=== PATIENT | male | born 1940 | race Caucasian/White ===

== ENCOUNTER → 2017-03-10 | Outpatient (CLI) | payer OTHER ==
[~2017-03-10] MED LIST: ASPI-482 PO; FINA5TAB4 PO; LACT1CAP8 PO; LISI2.5T PO; MULT1TAB52 PO; OMEG1CAP28 PO; TAMS0.4C2 PO
--- NOTE | 2017-03-11 06:57 | PAIN ---
DATE OF SERVICE: 03/10/2017 INITIAL CONSULTATION FOR PAIN CLINIC CHIEF COMPLAINT: Low back, bilateral lower extremity pain. HISTORY OF PRESENT ILLNESS: This is a 76-year-old male who presents with a history of pain for about 10 years, worse over the past 6-7 months, however, no specific injury or accident that he is aware of, but has been gradually increasing his low back pain across the low back, slightly more worse on the right than the left, but equal essentially bilaterally. The patient reports a dull aching pain, worse with walking, worse with standing, better with sitting or leaning forward, worse in the morning. It is intermittent in intensity, but it is always present, changes during the day ____ aching, throbbing, dull, sometimes with shooting pain at the posterior gluteus, posterior thighs bilaterally. The patient reports again slightly worse on the right, but presents in both legs. The patient reports some mild fatigability with standing or walking for more than about 15-20 minutes or on rough surfaces such as mowing his yard, it is becoming more difficult with radiating pain in his right leg. The patient reports he has had physical therapy, which was within the last 2 months, which helped with some flexibility and mobility of his back, but it has not helped with the pain significantly. The patient is doing exercise currently on his own as well. The patient does have a pain pill. He is not sure where it is, but it helps the pain about 50% that his primary physician has given him. The patient reports again no loss of motor function, reports his daily disability rating from 0-10, 10 being the worst, is a 5 with family and home responsibilities, 7 with recreation, 3 with social activity, 4 with occupation and sexual behavior and 0 with self-care and life support activities. PAST MEDICAL HISTORY: Significant for hearing loss, wearing hearing aids in the right ear, hypertension, history of smoking. PREVIOUS SURGERIES: Include tonsillectomy as a child and some oral dental surgeries in the past. CURRENT MEDICATIONS: Include probiotic ____ daily baby aspirin, multivitamins, lisinopril, tamsulosin, fish oil, finasteride. ALLERGIES: The patient has no known drug allergies. FAMILY HISTORY: Significant for diabetes, heart disease. SOCIAL HISTORY: The patient drinks about 2-3 beers daily. He reports he has been smoking cigarettes, continues to smoke less than a pack a day for the past 50 years. He is , lives with his spouse. 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 REVIEW OF SYSTEMS: Positive for those items mentioned in history of present illness. All systems reviewed and otherwise negative. It is complete, full and well documented on the patient's chart. PHYSICAL EXAMINATION: VITAL SIGNS: Today, the patient's blood pressure is 156/93, pulse 69, respirations 18, temperature 98.0 degrees Fahrenheit, height is 5 feet 9 inches, weight is 202 pounds. GENERAL: The patient is awake, alert, oriented, appropriate, has a very pleasant demeanor. HEENT: Shows normocephalic, atraumatic. Extraocular movements are intact, symmetrical. Oral cavity, his mucous membranes are moist and pink. Dentition is intact. NECK: Shows anterior throat supple without palpable lymphadenopathy noted. Swallow reflex is symmetrical. CHEST: Shows normal on inspection. Breath sounds are clear to auscultation bilaterally. HEART: Shows S1 and S2 clear. ABDOMEN: Soft, nontender, nondistended. No palpable organomegaly is noted. No rebound or guarding demonstrated. BACK: Shows spine grossly in the midline. Slight exaggeration of thoracic kyphosis and mild flattening of lumbar lordotic curvature. No previous bruises, lesions, rashes or scars are noted. Lumbar paraspinous muscles show symmetrical with inspection, with palpation shows moderate tenderness, but only in the low lumbar distribution and only diffusely with very deep palpation. No tenderness over the sacrum and sacroiliac regions, posterior superior iliac spines, over the spinous processes. The patient shows good rotational motion both laterally greater than 10 degrees right and left as well as extension 10 degrees, some mild pain reported in the base of the spine and no pain with forward flexion at 45 degrees, which he performs without difficulty. LOWER EXTREMITIES: Show deep tendon reflexes 2+ in the patellar, 1+ tendo calcaneus tendons, are equal. Motor exam is approximately 4 on a scale of 5 with right dorsiflexion and extension, but 5/5 on the left. Quadriceps and hamstring flexion are 5/5 and equal and symmetrical bilaterally. Peripheral pulses are 1+ posterior tibial and dorsalis pedis pulses. No peripheral edema is noted. No clubbing, no cyanosis. Lower extremities are warm and dry to touch, equal in color and appearance. Straight leg raise is noted to be positive on the right at about 45 degrees, but is relieved with knee flexion with some pain radiating into the posterior gluteus, posterior thigh, to the knee, but again relieved completely with knee flexion. Left side is negative. Gaenslen's and Josue's maneuvers are negative bilaterally as well. The patient is able to stand, stand on his toes without significant difficulty or loss of balance. He is walking with a slight shuffling gait, appears to favor the right lower extremity very minimally, not using any assistive devices such as canes or crutches or walkers to ambulate. IMPRESSION: 1. This is a 76-year-old male with about 10-year history of low back pain, bilateral lower extremity pain, somewhat worse on the right than the left. 2. MRI scan of the lumbar spine showing severe diffuse lumbar spondylosis with multiple levels of foraminal narrowing secondary to disk bulging and facet arthropathy exaggerated at L5-S1, L4-L5, L3-L4 and L2-L3 with L5-S1 showing severely narrowed diffuse bulging in both neural foramina contributing to severe bilateral foraminal narrowing, exaggerated due to moderate bilateral facet arthropathy and posterior vertebral body osteophytes. 3. Hypertension. 4. Cigarette smoking. PLAN: Options were discussed with the patient including conservative medical managements, physical therapies, interventional techniques and he has done physical therapies already and is still doing some exercises. He is interested in interventional techniques. We discussed a lumbar epidural steroid injection using description as well as anatomical models to describe the procedure. The patient would like to proceed with this. We will wait for preauthorization with his insurance provider by his request and have him return for lumbar epidural steroid injection at that time. In the meantime, we will try Medrol Dosepak. The patient was given instructions as well as side effects to be aware of and will return as scheduled. YANELI LOZA MD DR: JAQUELINE/naz JOB#: [id number] / [id number] MARYCHUY Hdez MD
== END | disposition home or self-care (01) ==
LOC: PNCL 09:27
PROVIDERS: ATTEND Anesthesiology
DX: M54.5 Low back pain (principal); M79.605 Pain in left leg; M79.604 Pain in right leg
CPT/HCPCS: G0463

== ENCOUNTER → 2017-03-27 | Outpatient (CLI) | payer OTHER ==
[~2017-03-27] MED LIST changes: +IOHEXOL 180 MG/ML 10 ML VIAL. ONE; +methylPREDNISolone ACETATE 40 MG/ML VIAL. ONE; +methylPREDNISolone ACETATE 80 MG/ML VIAL. ONE
--- NOTE | 2017-03-28 02:34 | PAIN ---
DATE OF SERVICE: 03/27/2017 DIAGNOSES: Lumbar radiculopathy with lumbar degenerative disk disease and lumbar spondylosis. HISTORY OF PRESENT ILLNESS: The patient is a 76-year-old male who returns for followup status post initial evaluation and preauthorization for lumbar epidural steroid injection. The patient reports still significant pain across the low back into the bilateral lower extremities. The patient reports no new motor or sensory deficits; however, no new bowel or bladder incontinence or other complaints, but still significant pain about the same as it was. We did try Medrol Dosepak, which he said helped for the first 4 or 5 days, but the pain has returned. The patient reports it is a 3 on a scale of 10 currently, it can be as high as an 8 on a scale of 10, it is aching, dull off and on pain across the low back and the bilateral lower extremities as previously. The patient reports no new motor or sensory deficits, no new bowel or bladder incontinence or other complaints. PHYSICAL EXAMINATION: VITAL SIGNS: The patient's blood pressure 155/82, pulse ____, respirations are 18, temperature is 98.0 degrees Fahrenheit. Height is 5 feet 10 inches, weight is 199 pounds. GENERAL: The patient is awake, alert, oriented, appropriate, very pleasant demeanor. HEENT: Head shows normocephalic, atraumatic. Extraocular movements are intact, symmetrical. Oral cavity, mucous membranes are moist and pink. Dentition is intact. NECK: Shows anterior throat supple without palpable lymphadenopathy noted. Swallow reflex is symmetrical. CHEST: Shows normal on inspection. Breath sounds clear to auscultation bilaterally. HEART: Shows S1 and S2 clear. ABDOMEN: Soft, nontender, nondistended. BACK: Shows spine grossly in the midline. Normal appearing thoracic kyphosis and lumbar lordotic curvature. Lumbar paraspinous muscle shows some moderate tenderness with palpation, but only diffusely in the lower lumbar distribution without radiation. No tenderness over the sacrum or sacroiliac regions over the spinous processes. The patient has good rotation and motion of the lumbar spine, both laterally as well as extension and flexion. EXTREMITIES: Lower extremities showed deep tendon reflexes 2+ in the patellar, 1+ tendo-calcaneus tendons and are equal. Motor exam is approximately 5/5 on the left and 4/5 on the right at the ankle with dorsiflexion and extension and 5/5 with quadriceps and hamstrings and symmetrical bilaterally. PLAN: Options were discussed with the patient and the patient's old chart was reviewed as his current medication regimen updated. Current review of systems updated today as well. We will proceed with a lumbar epidural steroid injection today with fluoroscopic guidance. Risks were again discussed including, but not limited to bleeding, infection, possibility of epidural hematoma, subsequent neurologic compromise, dural puncture, headaches, spinal cord and/or nerve damage, side effects of steroid medication and poor results regarding pain control. The patient understands and wishes to proceed. The patient will return to clinic in approximately 2 weeks for followup. He was counseled to return appointment, activity level and side effects to be aware of. DIAGNOSIS: Lumbar radiculopathy with lumbar degenerative disk disease, lumbar spondylosis. PROCEDURES: Lumbar epidural steroid injection in translaminar approach at the L5-S1 level using C-arm fluoroscopic guidance under sterile prep and drape and local anesthetic. Medication injected is 120 mg Depo-Medrol plus 10 mL of preservative-free normal saline and 2 mL of Isovue for contrast. CONDITION AT DISCHARGE: Stable. The patient tolerated procedure well, had no complications. YANELI LOZA MD DR: JAQUELINE/naz JOB#: [id number] / [id number]
== END | disposition home or self-care (01) ==
LOC: PNCL 09:56
PROVIDERS: ATTEND Anesthesiology
DX: M51.16 Intervertebral disc disorders with radiculopathy, lumbar region (principal); M47.26 Other spondylosis with radiculopathy, lumbar region
CPT/HCPCS: 62323; J1030; J1040

== ENCOUNTER → 2017-04-21 | Outpatient (CLI) | payer OTHER ==
[~2017-04-21] MED LIST changes: -IOHEXOL 180 MG/ML 10 ML VIAL. ONE; -methylPREDNISolone ACETATE 40 MG/ML VIAL. ONE; -methylPREDNISolone ACETATE 80 MG/ML VIAL. ONE
--- NOTE | 2017-04-22 01:47 | PAIN ---
DATE OF SERVICE: 04/21/2017 DIAGNOSES: Lumbar radiculopathy with lumbar degenerative disk disease and lumbar spondylosis. HISTORY OF PRESENT ILLNESS: The patient is a 76-year-old male who returns for followup status post lumbar epidural steroid injection x 1. The patient reports about 70% improvement initially with his low back and bilateral lower extremity pain. The patient reports his legs are doing much better, almost 100% improvement with about 50% improvement in his low back, but it is still painful in the low back itself with some radiating pain into the legs, but they are much, much better. The patient reports no new motor or sensory deficits, no new bowel or bladder incontinence or other complaints. It has been almost 4 weeks since his last injection. He is doing quite well. Pain is returning now just over the last few days. The patient reports he is still using workout time at the gym 3 times a week. He is sleeping well at night. He only notices pain when he is up walking or standing for more than about 20 minutes. The patient reports pain is a 5 on a scale of 10 at its worst. The patient reports no new motor or sensory deficits, no new bowel or bladder incontinence or other complaints. PHYSICAL EXAMINATION: VITAL SIGNS: Today, the patient's blood pressure is 143/69, pulse 67, respirations are 18, temperature is 97.8 degrees Fahrenheit, height is 5 feet 10 inches, weight is 194 pounds. GENERAL: The patient is awake, alert, oriented, appropriate, very pleasant demeanor. HEENT: Shows normocephalic and atraumatic. The patient is wearing eyeglasses. Extraocular movements are intact and symmetrical. Oral cavity shows mucous membranes are moist and pink. Dentition is intact. NECK: Shows anterior throat supple. CHEST: Shows normal on inspection. Breath sounds are clear to auscultation bilaterally. HEART: Shows S1 and S2 clear. No murmurs auscultated. ABDOMEN: Soft, nontender, nondistended. No palpable organomegaly is noted. No new rebound or guarding demonstrated. BACK: Shows spine grossly in the midline. Slight exaggeration of thoracic kyphosis and some mild flattening of the lumbar lordotic curvature. Lumbar paraspinous musculature shows symmetrical with inspection; on palpation, it shows some moderate tenderness, but only diffusely in the lower lumbar distribution with deep palpation and it is symmetrical without radiation. No tenderness over the sacrum or sacroiliac regions. The patient shows good rotational motion of the lumbar spine, both laterally as well as extension and flexion without significant pain reported. EXTREMITIES: Lower extremities show deep tendon reflexes 2+ in the patellar and tendo calcaneus tendons are 1+. Motor exam is strong with 5/5 dorsiflexion, extension, quadriceps and hamstring flexion with 4/5 strength on the right ankle as the only exception. Options were discussed with the patient. We will preauthorize the patient for a second lumbar epidural steroid injection. He did very well after the first one, the pain is beginning to return now with some radicular qualities in the lower extremities, but only significantly reduced from previously. The patient will return to the clinic in approximately 1 week. We will plan on second lumbar epidural steroid injection at that time. YANELI LOZA MD DR: JAQUELINE/naz JOB#: [id number] / [id number]
== END | disposition home or self-care (01) ==
LOC: PNCL 09:30
PROVIDERS: ATTEND Anesthesiology
DX: M51.16 Intervertebral disc disorders with radiculopathy, lumbar region (principal); M47.896 Other spondylosis, lumbar region
CPT/HCPCS: G0463

== ENCOUNTER → 2017-05-05 | Outpatient (CLI) | payer OTHER ==
[~2017-05-05] MED LIST changes: +IOHEXOL 180 MG/ML 10 ML VIAL. ONE; +methylPREDNISolone ACETATE 40 MG/ML VIAL. ONE; +methylPREDNISolone ACETATE 80 MG/ML VIAL. ONE
--- NOTE | 2017-05-06 02:46 | PAIN ---
DATE OF SERVICE: 05/05/2017 DIAGNOSES: Lumbar radiculopathy with lumbar degenerative disk disease and lumbar spondylosis. HISTORY OF PRESENT ILLNESS: The patient is a 76-year-old male who returns for followup status post lumbar epidural steroid injection x 1 and preauthorization for a second injection and returns today for that, reports still significant pain in the low back, rates as 6 on a scale of 10 at its worse and 4 on a scale of 10 at its least. The patient reports no new motor or sensory deficits, no new bowel or bladder incontinence or other complaints. He did about 50% better after the first injection, but now the pain is again returning in the low back itself with only minimal radiation to the lower extremities. The patient reports no new bowel or bladder incontinence or other complaints. PHYSICAL EXAMINATION: VITAL SIGNS: The patient's blood pressure 130/70, pulse 76, respirations 18, temperature 98.2 degrees Fahrenheit, height is 5 feet 10 inches, weighs ____ pounds. GENERAL: The patient is awake, alert, oriented, appropriate, very pleasant demeanor. HEENT: Head shows normocephalic, atraumatic. Extraocular movements are intact, symmetrical. The patient wears eyeglasses. Oral cavity, mucous membranes are moist and pink. Dentition is intact. NECK: Shows anterior throat supple without palpable lymphadenopathy noted. Swallow reflex is symmetrical. CHEST: Shows normal on inspection. Breath sounds clear to auscultation bilaterally. HEART: Shows S1 and S2 clear. ABDOMEN: Soft, nontender, nondistended. No palpable organomegaly, no rebound or guarding demonstrated. BACK: Shows spine grossly midline. Slight exaggeration of thoracic kyphosis, mild flattening of lumbar lordotic curvature. Lumbar paraspinous musculature shows some moderate tenderness with palpation, but symmetrical on inspection, no radiation of pain. No difficulty with rotational motion both laterally as well as extension and flexion of lumbar spine, which was performed without pain reported. EXTREMITIES: Lower extremities show deep tendon reflexes 2+ in the patellar and 1+ in calcaneus tendons. Motor exam is approximately 4 on a scale of 5 with right ankle and 5/5 on the left. Options were discussed with the patient and the patient's old chart was reviewed as his current medication regimen updated. Current review of systems updated today as well. We will proceed with a second lumbar epidural steroid injection in translaminar approach. Risks were again discussed including, but not limited to bleeding, infection, possibility of epidural hematoma and subsequent neurologic compromise, dural puncture, headaches, spinal cord and/or nerve damage, side effects of steroid medication and poor results regarding pain control. The patient understands and wishes to proceed. The patient will return to clinic in approximately 2 weeks for followup. He was counseled as to return appointment, activity level and side effects to be aware of. DIAGNOSIS: Lumbar radiculopathy with lumbar degenerative disk disease and lumbar spondylosis. PROCEDURE: Lumbar epidural steroid injection in translaminar approach at the L5-S1 level using C-arm fluoroscopic guidance under sterile prep and drape using local anesthetic. Medication injected is 120 mg Depo-Medrol 10 mL of preservative-free normal saline, 2 mL of Isovue for contrast. CONDITION AT DISCHARGE: Stable. The patient tolerated procedure well, had no complications. YANELI LOZA MD DR: JAQUELINE/naz JOB#: [id number] / [id number]
== END | disposition home or self-care (01) ==
LOC: PNCL 09:31
PROVIDERS: ATTEND Anesthesiology
DX: M51.16 Intervertebral disc disorders with radiculopathy, lumbar region (principal); M47.26 Other spondylosis with radiculopathy, lumbar region
CPT/HCPCS: 62323; J1030; J1040

== ENCOUNTER → 2017-05-21 | Outpatient (CLI) | payer OTHER ==
[~2017-05-21] MED LIST changes: -IOHEXOL 180 MG/ML 10 ML VIAL. ONE; -methylPREDNISolone ACETATE 40 MG/ML VIAL. ONE; -methylPREDNISolone ACETATE 80 MG/ML VIAL. ONE
== END | disposition home or self-care (01) ==
LOC: PNCL 10:07
PROVIDERS: ATTEND Anesthesiology
DX: M51.16 Intervertebral disc disorders with radiculopathy, lumbar region (principal); M47.26 Other spondylosis with radiculopathy, lumbar region
CPT/HCPCS: G0463

== ENCOUNTER → 2017-06-22 | Outpatient (CLI) | payer OTHER ==
[~2017-06-22] MED LIST changes: +IOHEXOL 180 MG/ML 10 ML VIAL. ONE; +methylPREDNISolone ACETATE 40 MG/ML VIAL. ONE; +methylPREDNISolone ACETATE 80 MG/ML VIAL. ONE
--- NOTE | 2017-06-22 23:27 | PAIN ---
DATE OF SERVICE: 06/22/2017 DIAGNOSES: Lumbar radiculopathy with lumbar degenerative disk disease and lumbar spondylosis. The patient is a 76-year-old male who returns for followup status post preauthorization and last visit on 05/21/2017. He has been approved now for his third injection. The patient is still with pain in low back into the bilateral lower extremities, reports essentially unchanged, 4 on a scale of 10 at all times and dull aching pain with a pressure sensation in the low back radiating to the gluteus posterior lateral thighs. The patient reports no new motor or sensory deficits, no new bowel or bladder incontinence. He is sleeping fairly well at night and he feels better with sitting or lying down. It does not awaken him from sleep. Increases activity with fairly good success. He has recently returned from a trip from [place] where he did a lot of walking, hiking and driving and tolerated it fairly well. The patient reports overall about 70% improvement. PHYSICAL EXAMINATION: VITAL SIGNS: Today, the patient's blood pressure 138/65, pulse 87, respirations 16, temperature is 98.0 degrees Fahrenheit, height is 5 feet 9 inches, weighs 191 pounds. GENERAL: The patient is awake, alert, oriented, appropriate, very pleasant demeanor. HEENT: Shows normocephalic, atraumatic. The patient is wearing a hearing aid in the right ear as well as eye glasses. Extraocular movements are intact, symmetrical. Oral cavity, mucous membranes moist and pink. NECK: Shows anterior throat supple. CHEST: Shows breath sounds clear to auscultation bilaterally. HEART: Shows S1 and S2 clear. ABDOMEN: Soft, nontender, nondistended. BACK: Shows spine grossly midline. Lumbar paraspinous musculature shows symmetrical on inspection with palpation shows some moderate tenderness bilaterally without radiation. No tenderness over the sacrum or sacroiliac regions. EXTREMITIES: Lower extremities show deep tendon reflexes at 2+ in the patellar and 1+ tendo calcaneus tendons. Motor exam is approximately 4 on a scale of 5 with right dorsiflexion and extension and 5/5 on the left. Options were discussed with the patient and the patient's old chart was reviewed as his current medication regimen updated. Current review of systems updated today as well and we will proceed with the third lumbar epidural steroid injection today with fluoroscopic guidance. Risks were again discussed including, but not limited to bleeding, infection, possibility of epidural hematoma and subsequent neurologic compromise, dural puncture, headaches, spinal cord and/or nerve damage, side effects of steroid medication and poor results regarding pain control. The patient understands and wishes to proceed. The patient will return to clinic in approximately 2 weeks for followup, was counseled on return appointment, activity level and side effects to be aware of. DIAGNOSES: Lumbar radiculopathy with lumbar degenerative disk disease, lumbar spondylosis. PROCEDURES: Lumbar epidural steroid injection in translaminar approach at the L5-S1 level using C-arm fluoroscopic guidance under sterile prep and drape using local anesthetic. MEDICATION INJECTED: A total of 120 mg Depo-Medrol preservative-free normal saline and 2 mL of Isovue contrast. CONDITION AT DISCHARGE: Stable. The patient tolerated procedure well, had no complications. YANELI LOZA MD DR: JAQUELINE/naz JOB#: [id number] / [id number]
== END | disposition home or self-care (01) ==
LOC: PNCL 12:58
PROVIDERS: ATTEND Anesthesiology
DX: M51.16 Intervertebral disc disorders with radiculopathy, lumbar region (principal); M47.26 Other spondylosis with radiculopathy, lumbar region
CPT/HCPCS: 62323; J1030; J1040

== ENCOUNTER → 2017-10-22 | Day surgery (SDC) | payer OTHER ==
[~2017-10-22] MED LIST changes: +ALBUTEROL SULFATE 2.5 MG/3 ML NEBU. NEB ONE; +ASPI325T8 PO; -IOHEXOL 180 MG/ML 10 ML VIAL. ONE; +IV RINGERS,LACTATED 1000ML 1,000 ML IV SCH; +LIDOCAINE 2% PF Vial for OR 5 ML VIAL. ONE; +METO-239 PO; +PROPOFOL 20 ML IV ONE; -methylPREDNISolone ACETATE 40 MG/ML VIAL. ONE; -methylPREDNISolone ACETATE 80 MG/ML VIAL. ONE
--- NOTE | 2017-10-22 15:14 | EKG ---
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
--- NOTE | 2017-10-22 15:52 | OP ---
DATE OF SURGERY: 10/22/2017 ATTENDING PHYSICIAN: Janelle Schneider MD. PROCEDURE: Bronchoscopy, bronchoalveolar lavage, cytology brushing. INDICATIONS: The patient presented with a persistent cough, pneumonia, abnormal x-ray. CT revealed left upper lobe mass. Undergoing diagnostic bronchoscopy. Risks, benefits and alternatives reviewed with the patient. He consented. DESCRIPTION OF PROCEDURE: Timeout was performed prior to sedation. Vital signs and O2 saturations were maintained within normal limits throughout the procedure. The bronchoscope was passed through the right naris. The vocal cords were identified moving bilaterally without any dysfunction. The vocal cords were then anesthetized with a total 5 mL of 4% lidocaine. Bronchoscope was passed through the vocal cords into the proximal trachea, which was normal. The distal trachea was normal. The right and left segments and subsegments were visualized. There was no endobronchial lesion. The scope was wedged into the right upper lobe segment. A cytology brushing was performed along with the lavage. The return on the lavage was serosanguineous. FINDINGS: 1. Normal vocal cords. 2. No endobronchial lesions. 3. No significant mucus plugging. PLAN: We will await the BAL and cytology brushing. JANELLE SCHNEIDER MD DR: BAR/naz JOB#: [id number] / [id number]
--- NOTE | 2017-10-22 16:19 | PDOC2 ---
VIRGINIA FARR MECHANICAL SYSTEMS DESIGNER 10/22/17 1619: CARDIAC CONSULT DATE OF CONSULT Date of Consult DATE: 10/22/17 TIME: 16:08 REASON FOR CONSULT Reason for Consult: Irregular HR REFERRING PHYSICIAN Referring Physician: Marissa SOURCE Source: Chart review, Patient HISTORY OF PRESENT ILLNESS HISTORY OF PRESENT ILLNESS This is a pleasant 76 yo male admitted for planned bronchoscopy due to abnormal lung PET scan. Per staff midway to bronchoscopy pt converted to tachycardia which I reviewed and appeared to be 2:1 atrial flutter in the 140s and was noted hypoxic at that time. He spontaneously went back to SR with stable BP. Pt denies any hx of CAD, VTE, arrhythmias. Pt works out at the gym doing stationary bicycle tiw 30 minutes each time and with weights without difficulty with last event Thursday. Denies any palpitations, CP, SOA, frequent dizziness and no changes with his activity tolerance. PAST MEDICAL HISTORY Cardiovascular: HTN Pulmonary: No pertinent hx CENTRAL NERVOUS SYSTEM: Other (No pertinent history) GI: Constipation Heme/Onc: No pertinent hx Hepatobiliary: No pertinent hx Psych: No pertinent hx Musculoskeletal: Osteoarthritis Rheumatologic: No pertinent hx Infectious disease: No pertinent hx ENT: No pertinent hx Renal/: Benign prostatic enlarg. Endocrine: No pertinent hx Dermatology: No pertinent hx PAST SURGICAL HISTORY Past Surgical History: Tonsillectomy, Other (vasectomy) FAMILY HISTORY Family History: Coronary Artery Disease (father) SOCIAL HISTORY Smoke: Quit (09/16/2017 50 pk yr) ALCOHOL: occassional Drugs: None Lives: with Family CURRENT MEDICATIONS CURRENT MEDICATIONS Current Medications Medications (Trade) Dose Ordered Sig/Lucia Route PRN Reason Start Time Stop Time Status Last Admin Dose Admin Ringer's Solution 1,000 ml @ 75 mls/hr [id number] IV 10/22/17 14:00 10/22/17 13:57 Albuterol Sulfate (Ventolin Neb Soln) 2.5 mg 1X ONCE NEB 10/22/17 14:15 10/22/17 14:16 DC 10/22/17 14:10 ALLERGIES ALLERGIES: Coded Allergies: No Known Allergies (Verified Allergy, Unknown, 10/22/17) ROS Review of System 14 point ROS evaluated with pertinent positives noted per HPI PHYSICAL EXAM General: Alert, Oriented X3, Cooperative, No acute distress HEENT: Atraumatic, Mucous membr. moist/pink Lungs: Other (diminished) Heart: Regular rate (SR), Normal S1, Normal S2, Other (distant heart sounds) Abdomen: Soft, No tenderness Extremities: No cyanosis, No edema Skin: No breakdown, No significant lesion Neuro: Normal speech, Sensation intact Psych/Mental Status: Mental status NL, Mood NL MUSCULOSKELETAL: Osteoarthritic changes both hands VITALS VITALS Vital Signs Date Time Temp Pulse Resp B/P (MAP) Pulse Ox O2 Delivery O2 Flow Rate FiO2 10/22/17 16:00 98.2 77 18 176/89 94 Nasal Cannula 3 98.2 ASSESSMENT/PLAN ASSESSMENT/PLAN 1. S/P Bronchoscopy for noted lung tumor per PET scan 2. SVT; appears to be 2:1 atrial flutter induced by hypoxia during bronch with spontaneous conversion to SR 3. HTN: controlled 4. Asymmetric increased activity in the left lobe of the thyroid gland: per PET scan Recommendations 1. Continue with home lisinopril 2. CMP, Mg, TSH, T3 3. TTE tomorrow 4. Will plan for outpt event monitor. Continue 81 mg ECASA for primary prevention Problems: DOM NFEF MD 10/23/17 1804: CARDIAC CONSULT ALLERGIES ALLERGIES: Coded Allergies: No Known Allergies (Verified Allergy, Unknown, 10/22/17) ASSESSMENT/PLAN ASSESSMENT/PLAN Pt. seen and examined. Late entry for 10/22/2017. 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 Had some arrhythmias overnight, currently stable. Start toprol XL 25mg daily. Stop Lisinopril. EVent monitor and f/u in the office in 4 weeks. Thanks for consultation. Problems: VIRGINIA FARR APRN Oct 22, 2017 16:19 DOM NEFF MD Oct 23, 2017 18:04
[2017-10-22 16:30] VITALS: BP 171/85
--- NOTE | 2017-10-27 16:33 | PATHOLOGY ---
CYTOPATHOLOGY REPORT CLINICAL HISTORY: Lung nodule. SPECIMEN(S) RECEIVED: A.Bronchoalveolar lavage, KELECHI B.Bronchial brushing, KELECHI FINAL DIAGNOSIS: A. Left upper lobe bronchoalveolar lavage, ThinPrep: - Atypical cells identified. - Few atypical keratinized squamous epithelial cells, bronchial epithelial cells, benign squamous epithelial cells, pulmonary macrophages, and scattered inflammatory cells identified. B. Left upper lobe bronchial brushing and brush tip rinse, smear and ThinPrep: - No malignant cells identified. - Focally reactive bronchial epithelial cells, few squamous epithelial cells, and few pulmonary macrophages identified. (JPM:rlm; 10/27/2017) PATHOLOGIST: Ruben Petersen M.D. REPORT ELECTRONICALLY SIGNED BY: Ruben Petersen M.D. DATE/TIME: 10/27/2017 16:32 GROSS PATHOLOGY: A. Bronchoalveolar lavage, KELECHI: The specimen is submitted unfixed, labeled "Annita Long". Received by the Cytology Department is 7.5 mL of cloudy pink fluid. One ThinPrep slide was prepared. B. Bronchial brushing, KELECHI: The specimen is labeled "Annita Long" and consists of one fixed slide. One brush tip in fixative is also submitted and one ThinPrep slide was prepared from this material. (clt 10.23.2017) PALM AND BACK FORGER(S): JOE Ram([facility] INITIAL CPT CODE(S): A; 34785 B; 53933 Professional services performed by [facility] [place] [address] Technical services performed by [facility] at [address] [place] [address], [place] [address]. PATIENT: ANNITA LONG /AGE: 1 1940 (Age: 76) SEX: M PATIENT #: [id number] ALT CASE #: SPECIMEN COLLECTION DATE: 10/23/2017 SPECIMEN RECEIVED DATE: 10/23/[address] [facility], [address] [place] [address] PHONE: [phone] DIRECTOR: Jame Chavis M.D. * * * END OF REPORT * * *
== END | disposition home or self-care (01) ==
LOC: SURG 12:55
PROVIDERS: ATTEND Internal Medicine Pulmonary Disease
DX: J18.9 Pneumonia, unspecified organism (principal); R94.2 Abnormal results of pulmonary function studies; R05 Cough; N40.0 Benign prostatic hyperplasia without lower urinary tract symptoms; I10 Essential (primary) hypertension; I48.91 Unspecified atrial fibrillation; F17.210 Nicotine dependence, cigarettes, uncomplicated; I47.1 Supraventricular tachycardia
CPT/HCPCS: 31622; 87070; 87116; 87205; 88112; 93005; 94640; J2704; J7613; J2001

== ENCOUNTER → 2017-11-17 | Outpatient (CLI) | payer OTHER ==
[2017-11-17 11:53] LABS: ADD MAN DIFF? NO
[2017-11-17 11:55] LABS: BASO # 0.1 x10^3/uL (0.0-0.2); BASO % 1 % (0-3); EOS # 0.3 x10^3/uL (0.0-0.7); EOS % 4 % (0-3); HEMATOCRIT 44.1 % (39.0-53.0); HEMOGLOBIN 14.4 g/dL (13.0-17.5); LYMPH % 27 % (24-48); MEAN CORPUSCULAR HEMOGLOBIN 33 pg (25-35); MEAN CORPUSCULAR HGB CONC 33 g/dL (31-37); MEAN CORPUSCULAR VOLUME 100 fL (79-100); MONO # 0.8 x10^3/uL (0.0-1.1); MONO % 10 % (0-9); NEUT # 4.2 x10^3uL (1.8-7.7); NEUT % 57 % (31-73); PLATELET COUNT 221 x10^3/uL (140-400); RED BLOOD COUNT 4.41 x10^6/uL (4.30-5.70); RED CELL DISTRIBUTION WIDTH 14.1 % (11.5-14.5); WHITE BLOOD COUNT 7.4 x10^3/uL (4.0-11.0)
[2017-11-17 12:10] LABS: INR 1.1 (0.8-1.1); PARTIAL THROMBOPLASTIN TIME 26 SEC (24-38); PROTHROMBIN TIME PATIENT 13.8 SEC (11.7-14.0)
[2017-11-17 12:12] LABS: ALBUMIN 3.7 g/dL (3.4-5.0); ALBUMIN/GLOBULIN RATIO 1.2 (1.0-1.7); ALK PHOS 66 U/L (46-116); ALT (SGPT) 31 U/L (16-63); ANION GAP 7 (6-14); AST (SGOT) 23 U/L (15-37); BLOOD UREA NITROGEN 13 mg/dL (8-26); BUN/CREATININE RATIO 22 (6-20); CALCIUM 9.4 mg/dL (8.5-10.1); CARBON DIOXIDE 31 mmol/L (21-32); CHLORIDE 105 mmol/L (98-107); CREATININE 0.6 mg/dL (0.7-1.3); GFR 130.6; GLUCOSE 90 mg/dL (70-99); POTASSIUM 4.3 mmol/L (3.5-5.1); SODIUM 143 mmol/L (136-145); TOTAL BILIRUBIN 0.5 mg/dL (0.2-1.0); TOTAL PROTEIN 6.9 g/dL (6.4-8.2)
== END | disposition home or self-care (01) ==
LOC: SURGPAT 11:25
DX: Z01.818 Encounter for other preprocedural examination (principal)
CPT/HCPCS: 36415; 80053; 85025; 85610; 85730; 93005

== ENCOUNTER 2017-11-23 07:01 | Inpatient (IN) | payer OTHER ==
[~2017-11-23 07:01] MED LIST changes: -ALBUTEROL SULFATE 2.5 MG/3 ML NEBU. NEB ONE; -ASPI-482 PO; -ASPI325T8 PO; -FINA5TAB4 PO; +HYDROmorphone 2 MG/ML VIAL IV; +IV RINGERS,LACTATED 1000ML 1,000 ML IV; -IV RINGERS,LACTATED 1000ML 1,000 ML IV SCH; -LACT1CAP8 PO; +LIDOCAINE 1% PF 2 ML VIAL. ID; -LIDOCAINE 2% PF Vial for OR 5 ML VIAL. ONE; -LISI2.5T PO; -METO-239 PO; +MORPHINE SULFATE 2 MG/ML DISP.SYRIN. IV; -MULT1TAB52 PO; -OMEG1CAP28 PO; +ONDANSETRON PF 4 MG/2 ML VIAL. IV; -PROPOFOL 20 ML IV ONE; -TAMS0.4C2 PO; +fentaNYL PF VIAL 100 MCG/2 ML VIAL IV
[2017-11-25] MEDS ORDERED: MORPHINE SULFATE 2 MG/ML DISP.SYRIN. IV (07:00)
[2017-11-25] MEDS ORDERED: ONDANSETRON PF 4 MG/2 ML VIAL. IV ×3 (07:00→15:15)
[2017-11-25] MEDS ORDERED: PROCHLORPERAZINE 10 MG/2 ML VIAL. IV ×2 (07:00→15:15)
[2017-11-25] MEDS ORDERED: LIDOCAINE 1% PF 2 ML VIAL. ID (07:00)
[2017-11-25] MEDS: IV RINGERS,LACTATED 1000ML 1,000 ML IV (07:00)
[2017-11-25] MEDS ORDERED: HYDROmorphone 2 MG/ML VIAL IV ×2 (07:00→15:15)
[2017-11-25] MEDS ORDERED: fentaNYL PF VIAL 100 MCG/2 ML VIAL IV ×2 (07:00)
[2017-11-25] MEDS: ceFAZolin SODIUM IV Push 1 GM VIAL. IVP (08:45)
[2017-11-25] MEDS ORDERED: FAMOTIDINE 20 MG/2 ML VIAL (09:12)
[2017-11-25] MEDS ORDERED: MIDAZOLAM HCL/PF 2 MG/2 ML VIAL. (09:13)
[2017-11-25] MEDS ORDERED: fentaNYL PF VIAL 250 MCG/5 ML VIAL (09:13)
[2017-11-25] MEDS ORDERED: ONDANSETRON PF 4 MG/2 ML VIAL. (09:17)
[2017-11-25] MEDS ORDERED: LIDOCAINE 2% PF Vial for OR 5 ML VIAL. (09:17)
[2017-11-25] MEDS ORDERED: ROCURONIUM 100 MG/10 ML VIAL. (09:17)
[2017-11-25] MEDS ORDERED: PROPOFOL 20 ML IV (09:17)
[2017-11-25] MEDS ORDERED: DEXAMETHASONE SOD PHOS 20 MG/5 ML VIAL. (09:18)
[2017-11-25] MEDS ORDERED: SURGICEL HEMOSTAT 4X8 EACH. (09:44)
[2017-11-25] MEDS ORDERED: NALOXONE 0.4 MG/ML VIAL. IV (11:15)
[2017-11-25] MEDS ORDERED: NALBUPHINE 10 MG/ML AMPUL. IV (11:15)
[2017-11-25] MEDS ORDERED: diphenhydrAMINE 50 MG/ML VIAL IV (11:15)
[2017-11-25] MEDS ORDERED: NEOSTIGMINE 10 MG/10 ML VIAL. (12:38)
[2017-11-25] MEDS ORDERED: ROCURONIUM 50 MG/5 ML VIAL. (12:56)
[2017-11-25] MEDS ORDERED: ePHEDrine PF IN SALINE 50 MG/5 ML DISP.SYRIN IV (13:33)
[2017-11-25] MEDS ORDERED: GLYCOPYRROLATE 1 MG/5 ML VIAL. (14:18)
[2017-11-25] MEDS ORDERED: CHONDROIT-SOD-HYALURONATE KIT. (14:26)
[2017-11-25] MEDS ORDERED: 0.9 % SODIUM CHLORIDE 10 ML DISP.SYRIN. IV (15:15)
[2017-11-25] MEDS ORDERED: BISACODYL 10 MG SUPP.RECT. PR (15:15)
[2017-11-25] MEDS: IV NORMAL SALINE 1000ML BAG 1,000 ML IV (15:15)
[2017-11-25] MEDS ORDERED: PROCHLORPERAZINE 25 MG SUPP.RECT. PR (15:15)
[2017-11-25] MEDS ORDERED: SEVOFLURANE > 120 MINUTES. IH (15:30)
[2017-11-25 15:57] LABS: HEMATOCRIT 40.4 % (39.0-53.0); HEMOGLOBIN 13.3 g/dL (13.0-17.5); MEAN CORPUSCULAR HEMOGLOBIN 32 pg (25-35); MEAN CORPUSCULAR HGB CONC 33 g/dL (31-37); MEAN CORPUSCULAR VOLUME 99 fL (79-100); PLATELET COUNT 213 x10^3/uL (140-400); RED CELL DISTRIBUTION WIDTH 13.7 % (11.5-14.5); WHITE BLOOD COUNT 12.6 x10^3/uL (4.0-11.0)
[2017-11-25 16:14] LABS: ALBUMIN 3.4 g/dL (3.4-5.0); ALBUMIN/GLOBULIN RATIO 1.3 (1.0-1.7); ALK PHOS 67 U/L (46-116); ALT (SGPT) 26 U/L (16-63); ANION GAP 11 (6-14); AST (SGOT) 29 U/L (15-37); BLOOD UREA NITROGEN 16 mg/dL (8-26); BUN/CREATININE RATIO 27 (6-20); CALCIUM 8.4 mg/dL (8.5-10.1); CARBON DIOXIDE 25 mmol/L (21-32); CHLORIDE 107 mmol/L (98-107); CREATININE 0.6 mg/dL (0.7-1.3); GFR 130.3; GLUCOSE 165 mg/dL (70-99); POTASSIUM 4.1 mmol/L (3.5-5.1); SODIUM 143 mmol/L (136-145); TOTAL BILIRUBIN 0.6 mg/dL (0.2-1.0)
[2017-11-25] MEDS ORDERED: hydrALAZINE 20 MG/ML VIAL. IVP (17:45)
[2017-11-25] MEDS: hydrALAZINE 20 MG/ML VIAL. IVP (17:53)
[2017-11-25] MEDS: ROPIVACAINE 0.5% EP (19:54)
[2017-11-25] MEDS: HYDROMORPHONE EP (19:54)
[2017-11-25] MEDS: NORMAL SALINE EP (19:54)
[2017-11-25] MEDS: [UNRECOGNIZED DRUG - OTHER] EP (19:54)
[2017-11-25] MEDS: IPRATRPIUM/ALBUTEROL 0.5/2.5MG 3 ML NEBU. NEB (20:11)
[2017-11-25] MEDS: FAMOTIDINE 20 MG/2 ML VIAL IVP (20:13)
[2017-11-25] MEDS: HEPARIN PF for SUB-Q USE 5,000 UNIT/0.5 ML VIAL. SQ (20:14)
[2017-11-25] MEDS: SENNOSIDES/DOCUSATE 8.6/50MG TABLET. PO (20:14)
[2017-11-25] MEDS: METOPROLOL TART IMMED RELEASE 25 MG TABLET. PO (20:14)
[2017-11-26] MEDS: HYDROMORPHONE EP ×4 (00:53→23:01)
[2017-11-26] MEDS: ROPIVACAINE 0.5% EP ×4 (00:53→23:01)
[2017-11-26] MEDS: [UNRECOGNIZED DRUG - OTHER] EP ×4 (00:53→23:01)
[2017-11-26] MEDS: NORMAL SALINE EP ×4 (00:53→23:01)
[2017-11-26] MEDS: KETOROLAC 15 MG/ML VIAL. IV ×2 (04:41→14:38)
[2017-11-26 05:50] LABS: HEMATOCRIT 35.4 % (39.0-53.0); MEAN CORPUSCULAR HEMOGLOBIN 34 pg (25-35); MEAN CORPUSCULAR HGB CONC 34 g/dL (31-37); MEAN CORPUSCULAR VOLUME 99 fL (79-100); PLATELET COUNT 179 x10^3/uL (140-400); RED BLOOD COUNT 3.59 x10^6/uL (4.30-5.70); RED CELL DISTRIBUTION WIDTH 14.2 % (11.5-14.5)
[2017-11-26 06:59] LABS: ALBUMIN 2.7 g/dL (3.4-5.0); ALK PHOS 55 U/L (46-116); ALT (SGPT) 30 U/L (16-63); ANION GAP 6 (6-14); AST (SGOT) 36 U/L (15-37); BLOOD UREA NITROGEN 14 mg/dL (8-26); BUN/CREATININE RATIO 20 (6-20); CALCIUM 7.7 mg/dL (8.5-10.1); CARBON DIOXIDE 26 mmol/L (21-32); CHLORIDE 104 mmol/L (98-107); CREATININE 0.7 mg/dL (0.7-1.3); GFR 109.1; GLUCOSE 169 mg/dL (70-99); POTASSIUM 4.2 mmol/L (3.5-5.1); SODIUM 136 mmol/L (136-145); TOTAL BILIRUBIN 0.4 mg/dL (0.2-1.0)
[2017-11-26 07:22] LABS: TOTAL PROTEIN 5.5 g/dL (6.4-8.2)
[2017-11-26] MEDS: IPRATRPIUM/ALBUTEROL 0.5/2.5MG 3 ML NEBU. NEB ×4 (08:25→20:27)
[2017-11-26] MEDS: ELECTROLYTE (NON-ICU) PROTOCOL MC (09:00)
[2017-11-26] MEDS: FINASTERIDE 5 MG TABLET. PO (09:32)
[2017-11-26] MEDS: METOPROLOL TART IMMED RELEASE 25 MG TABLET. PO ×2 (09:32→21:00)
[2017-11-26] MEDS: SENNOSIDES/DOCUSATE 8.6/50MG TABLET. PO ×2 (09:32→20:57)
[2017-11-26] MEDS: FAMOTIDINE 20 MG/2 ML VIAL IVP ×2 (09:32→20:57)
[2017-11-26] MEDS: TAMSULOSIN 0.4 MG CAP.ER.24H. PO (09:32)
[2017-11-26] MEDS: HEPARIN PF for SUB-Q USE 5,000 UNIT/0.5 ML VIAL. SQ ×2 (09:33→21:07)
[2017-11-27 01:15] LABS: MRSA BY PCR Negative (Negative)
[2017-11-27] MEDS: AMIODARONE 900 MG in IV DEXTROSE 5% 500 ML IV (02:55)
[2017-11-27] MEDS: AMIODARONE 150 MG in IV DEXTROSE 5% 100 ML IV (03:56)
[2017-11-27] MEDS: ROPIVACAINE 0.5% EP ×4 (04:11→20:15)
[2017-11-27] MEDS: [UNRECOGNIZED DRUG - OTHER] EP ×4 (04:11→20:15)
[2017-11-27] MEDS: HYDROMORPHONE EP ×4 (04:11→20:15)
[2017-11-27] MEDS: NORMAL SALINE EP ×4 (04:11→20:15)
[2017-11-27 06:16] LABS: HEMOGLOBIN 12.1 g/dL (13.0-17.5); MEAN CORPUSCULAR HEMOGLOBIN 33 pg (25-35); MEAN CORPUSCULAR HGB CONC 34 g/dL (31-37); MEAN CORPUSCULAR VOLUME 99 fL (79-100); PLATELET COUNT 177 x10^3/uL (140-400); RED BLOOD COUNT 3.62 x10^6/uL (4.30-5.70); RED CELL DISTRIBUTION WIDTH 14.2 % (11.5-14.5); WHITE BLOOD COUNT 9.5 x10^3/uL (4.0-11.0)
[2017-11-27 06:44] LABS: ALBUMIN 2.9 g/dL (3.4-5.0); ALK PHOS 57 U/L (46-116); ALT (SGPT) 25 U/L (16-63); ANION GAP 6 (6-14); AST (SGOT) 35 U/L (15-37); BLOOD UREA NITROGEN 12 mg/dL (8-26); BUN/CREATININE RATIO 17 (6-20); CALCIUM 8.4 mg/dL (8.5-10.1); CARBON DIOXIDE 28 mmol/L (21-32); CHLORIDE 104 mmol/L (98-107); CREATININE 0.7 mg/dL (0.7-1.3); GFR 109.1; GLUCOSE 125 mg/dL (70-99); POTASSIUM 4.4 mmol/L (3.5-5.1); SODIUM 138 mmol/L (136-145); TOTAL BILIRUBIN 0.7 mg/dL (0.2-1.0); TOTAL PROTEIN 5.9 g/dL (6.4-8.2)
[2017-11-27] MEDS: IPRATRPIUM/ALBUTEROL 0.5/2.5MG 3 ML NEBU. NEB ×3 (07:45→15:46)
[2017-11-27] MEDS: ELECTROLYTE (NON-ICU) PROTOCOL MC (09:00)
[2017-11-27] MEDS: METOPROLOL TART IMMED RELEASE 25 MG TABLET. PO ×2 (09:00→20:20)
[2017-11-27] MEDS: TAMSULOSIN 0.4 MG CAP.ER.24H. PO (09:19)
[2017-11-27] MEDS: METOPROLOL TARTRATE 5 MG/5 ML VIAL. IVP (09:19)
[2017-11-27] MEDS: SENNOSIDES/DOCUSATE 8.6/50MG TABLET. PO ×2 (09:19→20:20)
[2017-11-27] MEDS: HEPARIN PF for SUB-Q USE 5,000 UNIT/0.5 ML VIAL. SQ ×2 (09:25→20:19)
[2017-11-27] MEDS: FAMOTIDINE 20 MG/2 ML VIAL IVP ×2 (09:53→20:21)
[2017-11-27] MEDS: FINASTERIDE 5 MG TABLET. PO (09:58)
[2017-11-27] MEDS: dilTIAZem IV PUSH 25 MG/5 ML VIAL IVP (14:00)
[2017-11-27] MEDS: DIGOXIN IV 500 MCG/2 ML AMPUL. IV (16:32)
[2017-11-27] MEDS: VERAPAMIL 5 MG/2 ML VIAL. IV (16:44)
[2017-11-27] MEDS ORDERED: ALBUTEROL SULFATE 2.5 MG/3 ML NEBU. NEB (17:45)
[2017-11-27] MEDS: VERAPAMIL SR 120 MG TABLET.ER. PO (20:20)
[2017-11-28] MEDS: NORMAL SALINE EP ×2 (01:52→10:02)
[2017-11-28] MEDS: ROPIVACAINE 0.5% EP ×2 (01:52→10:02)
[2017-11-28] MEDS: HYDROMORPHONE EP ×2 (01:52→10:02)
[2017-11-28] MEDS: [UNRECOGNIZED DRUG - OTHER] EP ×2 (01:52→10:02)
[2017-11-28] MEDS: AMIODARONE 900 MG in IV DEXTROSE 5% 500 ML IV (01:56)
[2017-11-28 05:37] LABS: HEMATOCRIT 30.4 % (39.0-53.0); HEMOGLOBIN 10.2 g/dL (13.0-17.5); MEAN CORPUSCULAR HEMOGLOBIN 33 pg (25-35); MEAN CORPUSCULAR HGB CONC 33 g/dL (31-37); MEAN CORPUSCULAR VOLUME 99 fL (79-100); PLATELET COUNT 127 x10^3/uL (140-400); RED BLOOD COUNT 3.08 x10^6/uL (4.30-5.70); RED CELL DISTRIBUTION WIDTH 13.9 % (11.5-14.5); WHITE BLOOD COUNT 7.9 x10^3/uL (4.0-11.0)
[2017-11-28 07:24] LABS: ALBUMIN 2.4 g/dL (3.4-5.0); ALBUMIN/GLOBULIN RATIO 0.8 (1.0-1.7); ALK PHOS 52 U/L (46-116); ALT (SGPT) 23 U/L (16-63); ANION GAP 5 (6-14); AST (SGOT) 32 U/L (15-37); BLOOD UREA NITROGEN 13 mg/dL (8-26); BUN/CREATININE RATIO 22 (6-20); CALCIUM 8.1 mg/dL (8.5-10.1); CARBON DIOXIDE 31 mmol/L (21-32); CHLORIDE 101 mmol/L (98-107); CREATININE 0.6 mg/dL (0.7-1.3); GFR 130.3; GLUCOSE 115 mg/dL (70-99); POTASSIUM 4.3 mmol/L (3.5-5.1); SODIUM 137 mmol/L (136-145); TOTAL BILIRUBIN 0.5 mg/dL (0.2-1.0); TOTAL PROTEIN 5.5 g/dL (6.4-8.2)
[2017-11-28] MEDS: METOPROLOL TART IMMED RELEASE 25 MG TABLET. PO ×2 (08:26→20:33)
[2017-11-28] MEDS: VERAPAMIL SR 120 MG TABLET.ER. PO ×2 (08:27→20:32)
[2017-11-28] MEDS: BUDESONIDE 0.5 MG/2 ML NEBU. NEB ×2 (08:41→21:05)
[2017-11-28] MEDS: IPRATROPIUM BROMIDE 0.5 MG/2.5 ML NEBU. NEB ×4 (08:41→21:05)
[2017-11-28] MEDS: ELECTROLYTE (NON-ICU) PROTOCOL MC (09:00)
[2017-11-28] MEDS: FAMOTIDINE 20 MG/2 ML VIAL IVP ×2 (09:02→20:35)
[2017-11-28] MEDS: TAMSULOSIN 0.4 MG CAP.ER.24H. PO (09:03)
[2017-11-28] MEDS: SENNOSIDES/DOCUSATE 8.6/50MG TABLET. PO ×2 (09:03→20:32)
[2017-11-28] MEDS: FINASTERIDE 5 MG TABLET. PO (09:03)
[2017-11-28] MEDS: HEPARIN PF for SUB-Q USE 5,000 UNIT/0.5 ML VIAL. SQ ×2 (09:20→20:41)
[2017-11-29] MEDS: IPRATROPIUM BROMIDE 0.5 MG/2.5 ML NEBU. NEB ×4 (08:02→18:19)
[2017-11-29] MEDS: BUDESONIDE 0.5 MG/2 ML NEBU. NEB ×2 (08:02→18:19)
[2017-11-29] MEDS: HEPARIN PF for SUB-Q USE 5,000 UNIT/0.5 ML VIAL. SQ ×2 (08:57→21:17)
[2017-11-29] MEDS: FAMOTIDINE 20 MG/2 ML VIAL IVP ×2 (08:57→21:16)
[2017-11-29] MEDS: TAMSULOSIN 0.4 MG CAP.ER.24H. PO (08:58)
[2017-11-29] MEDS: METOPROLOL TART IMMED RELEASE 25 MG TABLET. PO ×2 (08:58→21:17)
[2017-11-29] MEDS: VERAPAMIL SR 120 MG TABLET.ER. PO ×2 (08:58→21:16)
[2017-11-29] MEDS: SENNOSIDES/DOCUSATE 8.6/50MG TABLET. PO ×2 (08:58→21:17)
[2017-11-29] MEDS: FINASTERIDE 5 MG TABLET. PO (08:59)
[2017-11-29] MEDS: ELECTROLYTE (NON-ICU) PROTOCOL MC (09:00)
[2017-11-29] MEDS: MAGNESIUM HYDROXIDE 2,400 MG/30 ML ORAL.SUSP. PO (18:20)
[2017-11-30 05:05] LABS: HEMATOCRIT 33.2 % (39.0-53.0); HEMOGLOBIN 11.2 g/dL (13.0-17.5); MEAN CORPUSCULAR HEMOGLOBIN 34 pg (25-35); MEAN CORPUSCULAR HGB CONC 34 g/dL (31-37); MEAN CORPUSCULAR VOLUME 100 fL (79-100); PLATELET COUNT 212 x10^3/uL (140-400); RED BLOOD COUNT 3.33 x10^6/uL (4.30-5.70); RED CELL DISTRIBUTION WIDTH 13.5 % (11.5-14.5); WHITE BLOOD COUNT 7.5 x10^3/uL (4.0-11.0)
[2017-11-30 05:46] LABS: ALBUMIN 2.2 g/dL (3.4-5.0); ALBUMIN/GLOBULIN RATIO 0.6 (1.0-1.7); ALK PHOS 57 U/L (46-116); ALT (SGPT) 26 U/L (16-63); ANION GAP 4 (6-14); AST (SGOT) 27 U/L (15-37); BLOOD UREA NITROGEN 10 mg/dL (8-26); BUN/CREATININE RATIO 20 (6-20); CALCIUM 8.3 mg/dL (8.5-10.1); CARBON DIOXIDE 33 mmol/L (21-32); CHLORIDE 97 mmol/L (98-107); CREATININE 0.5 mg/dL (0.7-1.3); GFR 160.8; GLUCOSE 115 mg/dL (70-99); SODIUM 134 mmol/L (136-145); TOTAL BILIRUBIN 0.4 mg/dL (0.2-1.0); TOTAL PROTEIN 5.7 g/dL (6.4-8.2)
[2017-11-30] MEDS: BUDESONIDE 0.5 MG/2 ML NEBU. NEB ×2 (05:54→19:57)
[2017-11-30] MEDS: IPRATROPIUM BROMIDE 0.5 MG/2.5 ML NEBU. NEB ×4 (05:54→19:57)
[2017-11-30] MEDS: FAMOTIDINE 20 MG/2 ML VIAL IVP (08:44)
[2017-11-30] MEDS: FINASTERIDE 5 MG TABLET. PO (08:45)
[2017-11-30] MEDS: TAMSULOSIN 0.4 MG CAP.ER.24H. PO (08:45)
[2017-11-30] MEDS: VERAPAMIL SR 120 MG TABLET.ER. PO (08:45)
[2017-11-30] MEDS: SENNOSIDES/DOCUSATE 8.6/50MG TABLET. PO ×2 (08:45→21:04)
[2017-11-30] MEDS: METOPROLOL TART IMMED RELEASE 25 MG TABLET. PO ×2 (08:45→21:05)
[2017-11-30] MEDS: oxyCODONE/APAP 5/325 1 TAB TABLET PO (08:46)
[2017-11-30] MEDS: HEPARIN PF for SUB-Q USE 5,000 UNIT/0.5 ML VIAL. SQ ×2 (08:51→21:09)
[2017-11-30] MEDS: ELECTROLYTE (NON-ICU) PROTOCOL MC (09:00)
[2017-11-30] MEDS: DABIGATRAN ETEXILATE 150 MG CAPSULE. PO (21:04)
[2017-11-30] MEDS: VERAPAMIL SR 180 MG TABLET.ER. PO (21:04)
[2017-11-30] MEDS: FAMOTIDINE 20 MG TABLET. PO (21:05)
[2017-12-01] MEDS: BUDESONIDE 0.5 MG/2 ML NEBU. NEB (08:01)
[2017-12-01] MEDS: IPRATROPIUM BROMIDE 0.5 MG/2.5 ML NEBU. NEB ×2 (08:01→11:47)
[2017-12-01] MEDS: FAMOTIDINE 20 MG TABLET. PO (08:58)
[2017-12-01] MEDS: TAMSULOSIN 0.4 MG CAP.ER.24H. PO (08:58)
[2017-12-01] MEDS: SENNOSIDES/DOCUSATE 8.6/50MG TABLET. PO (08:59)
[2017-12-01] MEDS: VERAPAMIL SR 180 MG TABLET.ER. PO (08:59)
[2017-12-01] MEDS: oxyCODONE/APAP 5/325 1 TAB TABLET PO (08:59)
[2017-12-01] MEDS: FINASTERIDE 5 MG TABLET. PO (08:59)
[2017-12-01] MEDS: DABIGATRAN ETEXILATE 150 MG CAPSULE. PO (08:59)
[2017-12-01] MEDS: METOPROLOL TART IMMED RELEASE 25 MG TABLET. PO (08:59)
[2017-12-01] MEDS: ELECTROLYTE (NON-ICU) PROTOCOL MC (09:00)
[2017-12-01] MEDS: HEPARIN PF for SUB-Q USE 5,000 UNIT/0.5 ML VIAL. SQ (09:03)
[2017-12-01] MEDS ORDERED: ANTI-COAG MONITOR BY PHARMACY. MC (10:00)
== END 2017-12-01 15:05 | disposition home or self-care (01) | DRG 163 ==
LOC: OPSVCIP 11-25 08:09 → 2 SOUTH 11-27 02:00 → 1 WEST ICU 11-25 15:22 → OPSVCIP 07:01
PROC: 0BT Respiratory System, Resection (ICD-10-PCS; principal; 2017-11-25 10:00)
PROC: 0BTG0ZZ Resection of Left Upper Lung Lobe, Open Approach (ICD-10-PCS; 2017-11-25 10:00)
PROC: 0BJ08ZZ Inspection of Tracheobronchial Tree, Via Natural or Artificial Opening Endoscopic (ICD-10-PCS; 2017-11-25 10:00)
PROC: 07B70ZX Excision of Thorax Lymphatic, Open Approach, Diagnostic (ICD-10-PCS; 2017-11-25 10:00)
DX: C34.12 Malignant neoplasm of upper lobe, left bronchus or lung (principal); J96.01 Acute respiratory failure with hypoxia; I48.92 Unspecified atrial flutter; I48.0 Paroxysmal atrial fibrillation; J44.9 Chronic obstructive pulmonary disease, unspecified; M19.90 Unspecified osteoarthritis, unspecified site; I10 Essential (primary) hypertension; N40.0 Benign prostatic hyperplasia without lower urinary tract symptoms; Z72.0 Tobacco use; Z82.49 Family history of ischemic heart disease and other diseases of the circulatory system; Z90.49 Acquired absence of other specified parts of digestive tract
CPT/HCPCS: 36415; 71045; 71046; 80053; 85027; 86850; 86900; 86901; 86920; 87641; 88305; 88309; 88331; 94618; 94640; 94760; 97116-GP; 97162-GP; 97166-GO; 97530-GP; G0238; J0282; J0360; J0690; J1100; J1160; J1170; J1885; J2250; J2405; J2704; J2710; J2795; J3010; J3490; J7030; J7040; J7120; J7620; J7626; J7644; S0028

== ENCOUNTER → 2017-12-18 | Outpatient (CLI) | payer OTHER | END | disposition home or self-care (01) | LOC: RAD 12:00 | DX: C34.90 Malignant neoplasm of unspecified part of unspecified bronchus or lung (principal); J90 Pleural effusion, not elsewhere classified | CPT/HCPCS: 71046 ==

== ENCOUNTER 2017-12-27 19:19 | Emergency (ER) | payer OTHER | END 2017-12-27 20:15 | disposition home or self-care (01) | LOC: ER 19:19 | DX: T81.4XXA Infection following a procedure, initial encounter (principal); I11.9 Hypertensive heart disease without heart failure; Z85.118 Personal history of other malignant neoplasm of bronchus and lung; Y84.8 Other medical procedures as the cause of abnormal reaction of the patient, or of later complication, without mention of misadventure at the time of the procedure; Y92.89 Other specified places as the place of occurrence of the external cause | CPT/HCPCS: 99283 ==

== ENCOUNTER → 2018-01-15 | Outpatient (CLI) | payer OTHER | END | disposition home or self-care (01) | LOC: PNCL 09:14 | DX: M51.16 Intervertebral disc disorders with radiculopathy, lumbar region (principal); M47.896 Other spondylosis, lumbar region | CPT/HCPCS: G0463 ==

== ENCOUNTER → 2018-01-29 | Outpatient (CLI) | payer OTHER ==
[~2018-01-29] MED LIST changes: -HYDROmorphone 2 MG/ML VIAL IV; +IOHEXOL 180 MG/ML 10 ML VIAL.; -IV RINGERS,LACTATED 1000ML 1,000 ML IV; -LIDOCAINE 1% PF 2 ML VIAL. ID; -MORPHINE SULFATE 2 MG/ML DISP.SYRIN. IV; -ONDANSETRON PF 4 MG/2 ML VIAL. IV; -fentaNYL PF VIAL 100 MCG/2 ML VIAL IV; +methylPREDNISolone ACETATE 40 MG/ML VIAL.; +methylPREDNISolone ACETATE 80 MG/ML VIAL.
== END ==
LOC: PNCL 10:57
DX: M51.16 Intervertebral disc disorders with radiculopathy, lumbar region (principal); M47.896 Other spondylosis, lumbar region; I48.91 Unspecified atrial fibrillation; I48.92 Unspecified atrial flutter; J94.8 Other specified pleural conditions; F17.200 Nicotine dependence, unspecified, uncomplicated; I10 Essential (primary) hypertension; K59.09 Other constipation; N40.0 Benign prostatic hyperplasia without lower urinary tract symptoms; M19.90 Unspecified osteoarthritis, unspecified site; M54.5 Low back pain; Z85.118 Personal history of other malignant neoplasm of bronchus and lung; Z79.82 Long term (current) use of aspirin; Z98.890 Other specified postprocedural states; Z79.899 Other long term (current) drug therapy
CPT/HCPCS: 62323; J1030; J1040; Q9965

== ENCOUNTER → 2018-03-04 | Outpatient (CLI) | payer OTHER | END | disposition home or self-care (01) | LOC: PNCL 11:14 | DX: M51.16 Intervertebral disc disorders with radiculopathy, lumbar region (principal); M47.896 Other spondylosis, lumbar region | CPT/HCPCS: G0463 ==

== ENCOUNTER → 2018-03-22 | Outpatient (CLI) | payer OTHER | LOC: PNCL 13:14 | DX: M51.16 Intervertebral disc disorders with radiculopathy, lumbar region (principal); M47.896 Other spondylosis, lumbar region; I10 Essential (primary) hypertension; M19.90 Unspecified osteoarthritis, unspecified site; F17.200 Nicotine dependence, unspecified, uncomplicated; Z98.52 Vasectomy status; Z98.890 Other specified postprocedural states | CPT/HCPCS: 62323; J1030; J1040; Q9965 ==

== ENCOUNTER → 2018-04-05 | Outpatient (CLI) | payer OTHER | END | disposition home or self-care (01) | LOC: PNCL 12:56 | DX: M51.16 Intervertebral disc disorders with radiculopathy, lumbar region (principal); M47.896 Other spondylosis, lumbar region | CPT/HCPCS: G0463 ==

== ENCOUNTER → 2018-04-28 | Outpatient (CLI) | payer OTHER | END | disposition home or self-care (01) | LOC: ECHO 14:07 | DX: I48.0 Paroxysmal atrial fibrillation (principal); I27.20 Pulmonary hypertension, unspecified; I08.1 Rheumatic disorders of both mitral and tricuspid valves | CPT/HCPCS: 93306 ==

== ENCOUNTER → 2018-05-18 | Outpatient (CLI) | payer OTHER | END | disposition home or self-care (01) | LOC: US 15:59 | DX: M79.89 Other specified soft tissue disorders (principal); I11.0 Hypertensive heart disease with heart failure; I50.9 Heart failure, unspecified; J44.9 Chronic obstructive pulmonary disease, unspecified; R60.0 Localized edema | CPT/HCPCS: 93971 ==

== ENCOUNTER 2018-05-21 05:23 | Inpatient (IN) | payer OTHER ==
[2018-05-21] MEDS: methylPREDNISolone SOD SUCC PF 125 MG/2 ML VIAL. IV ×2 (05:44→21:15)
[2018-05-21] MEDS: FUROSEMIDE 40 MG TABLET. PO ×2 (05:45→14:21)
[2018-05-21 05:48] LABS: ADD MAN DIFF? NO
[2018-05-21 05:50] LABS: BASO % 0 % (0-3); EOS % 0 % (0-3); HEMATOCRIT 40.8 % (39.0-53.0); HEMOGLOBIN 13.2 g/dL (13.0-17.5); LYMPH # 0.9 x10^3/uL (1.0-4.8); LYMPH % 12 % (24-48); MEAN CORPUSCULAR HEMOGLOBIN 32 pg (25-35); MEAN CORPUSCULAR HGB CONC 33 g/dL (31-37); MEAN CORPUSCULAR VOLUME 98 fL (79-100); MONO # 0.5 x10^3/uL (0.0-1.1); MONO % 6 % (0-9); NEUT # 6.1 x10^3uL (1.8-7.7); NEUT % 81 % (31-73); PLATELET COUNT 180 x10^3/uL (140-400); RED BLOOD COUNT 4.15 x10^6/uL (4.30-5.70); RED CELL DISTRIBUTION WIDTH 17.6 % (11.5-14.5); WHITE BLOOD COUNT 7.5 x10^3/uL (4.0-11.0)
[2018-05-21] MEDS: IPRATRPIUM/ALBUTEROL 0.5/2.5MG 3 ML NEBU. NEB ×2 (05:58→19:50)
[2018-05-21 06:05] LABS: ANION GAP -3 (6-14); BLOOD UREA NITROGEN 16 mg/dL (8-26); BUN/CREATININE RATIO 23 (6-20); CALCIUM 8.9 mg/dL (8.5-10.1); CARBON DIOXIDE 41 mmol/L (21-32); CHLORIDE 101 mmol/L (98-107); CREATININE 0.7 mg/dL (0.7-1.3); GFR 109.1; GLUCOSE 154 mg/dL (70-99); POTASSIUM 5.4 mmol/L (3.5-5.1); SODIUM 139 mmol/L (136-145)
[2018-05-21 06:12] LABS: LACTIC ACID 0.8 mmol/L (0.4-2.0); TROPONINI < 0.017 ng/mL (0.000-0.055)
[2018-05-21 06:17] LABS: BASE EXCESS ABG 9 mmol/L (-3-3); HCO3 ABG 40 mmol/L (21-28); INR 1.2 (0.8-1.1); PH ABG 7.23 (7.35-7.45); PO2 ABG 64 mmHg (65-108); SAT O2 ABG 90 % (92-99)
[2018-05-21 06:18] LABS: ALBUMIN 3.4 g/dL (3.4-5.0); ALBUMIN/GLOBULIN RATIO 1.1 (1.0-1.7); ALK PHOS 77 U/L (46-116); ALT (SGPT) 79 U/L (16-63); AST (SGOT) 34 U/L (15-37); MAGNESIUM 2.3 mg/dL (1.8-2.4); TOTAL BILIRUBIN 0.5 mg/dL (0.2-1.0); TOTAL PROTEIN 6.6 g/dL (6.4-8.2)
[2018-05-21 06:19] LABS: THYROID STIM HORMONE (TSH) 0.794 uIU/mL (0.358-3.74)
[2018-05-21 06:19] LABS: FREE T4 0.79 ng/dL (0.76-1.46)
[2018-05-21 06:21] LABS: CKMB MASS 0.7 ng/mL (0.0-3.6); CREATINE KINASE 29 U/L (39-308); PCO2 ABG 99 mmHg (35-46)
[2018-05-21 06:21] LABS: NT-PRO BNP 686 pg/mL (0-449)
[2018-05-21 06:22] LABS: FIO2 ABG 32
[2018-05-21 07:14] LABS: BASE EXCESS ABG 7 mmol/L (-3-3); HCO3 ABG 38 mmol/L (21-28); PH ABG 7.24 (7.35-7.45); PO2 ABG 86 mmHg (65-108); SAT O2 ABG 95 % (92-99)
[2018-05-21 07:42] LABS: PCO2 ABG 92 mmHg (35-46)
[2018-05-21 07:43] LABS: FIO2 ABG 50
[2018-05-21] MEDS: VERAPAMIL SR 180 MG TABLET.ER. PO ×2 (14:20→21:17)
[2018-05-21] MEDS: METOPROLOL TART IMMED RELEASE 25 MG TABLET. PO ×2 (14:21→21:17)
[2018-05-21] MEDS: FLECAINIDE ACETATE 50 MG TABLET. PO ×2 (14:21→21:16)
[2018-05-21] MEDS: ASPIRIN CHEWABLE 81 MG TABLET. PO (14:21)
[2018-05-21] MEDS ORDERED: ALBUTEROL SULFATE 2.5 MG/3 ML NEBU. NEB (16:45)
[2018-05-21] MEDS ORDERED: DOCUSATE SODIUM 100 MG CAPSULE. PO (18:00)
[2018-05-21] MEDS: cefTRIAXone IV Push 1 GM VIAL. IVP (18:52)
[2018-05-21 20:20] LABS: TROPONINI < 0.017 ng/mL (0.000-0.055)
[2018-05-21 20:35] LABS: POC GLUCOSE 172 mg/dL (70-99)
[2018-05-21] MEDS: APIXABAN 2.5 MG TABLET. PO (21:16)
[2018-05-21] MEDS: AZITHROMYCIN 500 MG in IV NORMAL SALINE 250ML 250 ML IV (21:18)
[2018-05-22] MEDS: methylPREDNISolone SOD SUCC PF 125 MG/2 ML VIAL. IV ×3 (06:11→21:53)
[2018-05-22] MEDS: ASPIRIN CHEWABLE 81 MG TABLET. PO (08:12)
[2018-05-22] MEDS: FUROSEMIDE 40 MG TABLET. PO (08:12)
[2018-05-22] MEDS: APIXABAN 2.5 MG TABLET. PO ×2 (08:12→21:55)
[2018-05-22] MEDS: VERAPAMIL SR 180 MG TABLET.ER. PO ×2 (08:12→21:54)
[2018-05-22] MEDS: DOCUSATE SODIUM 100 MG CAPSULE. PO (08:12)
[2018-05-22] MEDS: FLECAINIDE ACETATE 50 MG TABLET. PO ×2 (08:13→21:53)
[2018-05-22] MEDS: METOPROLOL TART IMMED RELEASE 25 MG TABLET. PO ×2 (08:13→21:55)
[2018-05-22] MEDS: IPRATRPIUM/ALBUTEROL 0.5/2.5MG 3 ML NEBU. NEB ×4 (08:19→20:03)
[2018-05-22] MEDS: FUROSEMIDE 40 MG/4 ML VIAL. IVP (09:32)
[2018-05-22] MEDS: ANTI-COAG MONITOR BY PHARMACY. MC (16:21)
[2018-05-22] MEDS: cefTRIAXone IV Push 1 GM VIAL. IVP (17:56)
[2018-05-22] MEDS: AZITHROMYCIN 500 MG in IV NORMAL SALINE 250ML 250 ML IV (22:00)
[2018-05-23] MEDS: methylPREDNISolone SOD SUCC PF 125 MG/2 ML VIAL. IV ×3 (06:39→20:47)
[2018-05-23] MEDS: DOCUSATE SODIUM 100 MG CAPSULE. PO (07:44)
[2018-05-23] MEDS: FUROSEMIDE 40 MG TABLET. PO (07:45)
[2018-05-23] MEDS: APIXABAN 2.5 MG TABLET. PO (07:45)
[2018-05-23] MEDS: METOPROLOL TART IMMED RELEASE 25 MG TABLET. PO (07:45)
[2018-05-23] MEDS: VERAPAMIL SR 180 MG TABLET.ER. PO ×2 (07:45→20:48)
[2018-05-23] MEDS: ASPIRIN CHEWABLE 81 MG TABLET. PO (07:45)
[2018-05-23] MEDS: FLECAINIDE ACETATE 50 MG TABLET. PO (07:46)
[2018-05-23] MEDS: IPRATRPIUM/ALBUTEROL 0.5/2.5MG 3 ML NEBU. NEB ×4 (08:09→19:35)
[2018-05-23] MEDS: ANTI-COAG MONITOR BY PHARMACY. MC (09:52)
[2018-05-23 12:08] LABS: POC GLUCOSE 158 mg/dL (70-99)
[2018-05-23] MEDS: FUROSEMIDE 40 MG/4 ML VIAL. IVP (13:43)
[2018-05-23] MEDS: cefTRIAXone IV Push 1 GM VIAL. IVP (18:05)
[2018-05-23] MEDS: METOPROLOL TART IMMED RELEASE 50 MG TABLET. PO (20:47)
[2018-05-23] MEDS: APIXABAN 5 MG TABLET. PO (20:47)
[2018-05-24] MEDS: methylPREDNISolone SOD SUCC PF 125 MG/2 ML VIAL. IV ×2 (06:30→14:00)
[2018-05-24] MEDS: IPRATRPIUM/ALBUTEROL 0.5/2.5MG 3 ML NEBU. NEB ×2 (07:48→11:27)
[2018-05-24 08:02] LABS: BASE EXCESS ABG 18 mmol/L (-3-3); HCO3 ABG 47 mmol/L (21-28); PH ABG 7.41 (7.35-7.45); PO2 ABG 65 mmHg (65-108); SAT O2 ABG 92 % (92-99)
[2018-05-24 08:57] LABS: PCO2 ABG 76 mmHg (35-46)
[2018-05-24 08:58] LABS: FIO2 ABG 28%/ 2L NC
[2018-05-24] MEDS: VERAPAMIL SR 180 MG TABLET.ER. PO (09:33)
[2018-05-24] MEDS: DOCUSATE SODIUM 100 MG CAPSULE. PO (09:33)
[2018-05-24] MEDS: APIXABAN 5 MG TABLET. PO (09:34)
[2018-05-24] MEDS: METOPROLOL TART IMMED RELEASE 50 MG TABLET. PO (09:34)
[2018-05-24] MEDS: ASPIRIN CHEWABLE 81 MG TABLET. PO (09:34)
[2018-05-24] MEDS: FUROSEMIDE 40 MG TABLET. PO (09:34)
[2018-05-24] MEDS: PNEUMOC CONJ VACC 23-VALENT 0.5 ML VIAL. VAX IM (14:18)
== END 2018-05-24 14:30 | disposition home or self-care (01) | DRG 291 ==
LOC: ER 05:23 → 2 SOUTH 06:45
PROC: 5A09357 Assistance with Respiratory Ventilation, Less than 24 Consecutive Hours, Continuous Positive Airway Pressure (ICD-10-PCS; principal; 2018-05-21)
DX: I11.0 Hypertensive heart disease with heart failure (principal); J18.9 Pneumonia, unspecified organism; J96.22 Acute and chronic respiratory failure with hypercapnia; J96.21 Acute and chronic respiratory failure with hypoxia; J44.1 Chronic obstructive pulmonary disease with (acute) exacerbation; J44.0 Chronic obstructive pulmonary disease with (acute) lower respiratory infection; I48.1 Persistent atrial fibrillation; I48.2 Chronic atrial fibrillation; I25.10 Atherosclerotic heart disease of native coronary artery without angina pectoris; I50.33 Acute on chronic diastolic (congestive) heart failure; I48.0 Paroxysmal atrial fibrillation; N41.9 Inflammatory disease of prostate, unspecified; Z85.118 Personal history of other malignant neoplasm of bronchus and lung; Z99.81 Dependence on supplemental oxygen; Z79.01 Long term (current) use of anticoagulants; Z87.891 Personal history of nicotine dependence; Z90.2 Acquired absence of lung [part of]; Z00.6 Encounter for examination for normal comparison and control in clinical research program; Z80.1 Family history of malignant neoplasm of trachea, bronchus and lung
CPT/HCPCS: 36415; 36600; 71045; 71046; 80053; 82553; 82805; 82962; 83605; 83735; 83880; 84439; 84443; 84484; 85025; 85610; 87040; 90732; 93005; 93971; 94640; 94660; 94760; 96374; 99291; J0456; J0696; J1940; J2930; J7050; J7620

== ENCOUNTER → 2018-08-20 | Outpatient (CLI) | payer OTHER ==
[2018-05-24 11:00] VITALS: BP_SYST 111
[2018-06-19 10:57] VITALS: BP_DIAS 68
[~2018-08-20] MED LIST changes: +APIX2.5T PO; +APIX5TAB PO; +ASPI-482 PO; +ASPI-630 PO; +ASPI325T8 PO; +CONTRAST GIVEN. MC PRN; +DABI150C PO; +DRON400T PO; +FINA5TAB4 PO; +FLEC50TA PO; +FURO-69 PO; +FURO40TA4 PO; +GABA-585 PO; -IOHEXOL 180 MG/ML 10 ML VIAL.; +IOHEXOL 240 MG/ML 50ML VIAL. PO ONE; +IOHEXOL 300 MG/ML 100ML VIAL. IV ONE; +LACT1CAP8 PO; +LISI2.5T PO; +METO-239 PO; +METO25TA4 PO; +METO50TA6 PO; +MULT1TAB52 PO; +MUPI22OI2 TP; +OMEG1CAP28 PO; +OXYC1TAB7 PO; +SENN8.6T67 PO; +TAMS0.4C2 PO; +VERA120T2 PO; +VERA180T PO; -methylPREDNISolone ACETATE 40 MG/ML VIAL.; -methylPREDNISolone ACETATE 80 MG/ML VIAL.
--- NOTE | 2018-08-20 13:43 | RAD ---
CT CHEST ABD PELVIS W/CONTRAST Indication: Lung cancer Technique: Postcontrast CT imaging was performed of the chest, abdomen, pelvis, multiplanar reconstruction images submitted. Oral contrast was also given. One or more of the following individualized dose reduction techniques were utilized for this examination: 1. Automated exposure control 2. Adjustment of the mA and/or kV according to patient size 3. Use of iterative reconstruction technique. Contrast: 75 cc Omnipaque 300 Comparison: Chest CT December 08, 2017, PET CT October 22, 2017. There is no previous diagnostic CT abdomen pelvis exam for comparison. CHEST: Findings: There is trace residual pleural fluid at the left lung base. There is no right pleural effusion. There is no pneumothorax or infiltrate. Heart is again enlarged. There is coronary calcification. No new significantly enlarged nodes are identified of the chest. There is fat-containing right paratracheal node as seen previously, short axis dimension about 1.1 cm. There is again ectatic ascending thoracic aorta about 3.8 cm. Aortic root measures about 3.6 cm. There is no dissection flap of the thoracic aorta. There is again volume loss of the left hemithorax on postsurgical basis. No new bony destructive lesion is identified. There is minimal calcified pleural plaque on the right as seen previously. There is a small left lower lobe nodule about 0.7 cm as seen axial image 36 not clearly seen on the PET/CT, previously this area obscured by pleural fluid on the November 2017 exam. There is multilevel thoracic degenerative disc disease and spondylosis, some variable sclerosis of endplates. IMPRESSION: 1. There is a small 0.7 cm left lower lobe pulmonary nodule not clearly seen on previous chest CT although postsurgical changes of the left chest. There is trace residual left pleural fluid. There is no new significant lymphadenopathy. 2. Heart is again enlarged. There is coronary calcification. 3. There is again ectatic ascending thoracic aorta about 3.8 cm. Abdomen pelvis: FINDINGS: There is some relative fullness of the adrenal glands bilaterally as seen previously without new discrete nodularity. Both kidneys enhance, no hydronephrosis. There is no new focal abnormality of the liver, spleen, pancreas. There are again scattered small calcifications associated with the pancreas. Gallbladder is present without obvious intraluminal abnormality by CT. Bowel is not significantly dilated. There is no free fluid or free air. There is retained stool most notable transverse through the remainder of the colon. Abdominal aortic caliber is within normal limits. No new significant lymphadenopathy is identified. What probably represents a node to the left of the abdominal aorta axial image 30 about 1.3 cm AP by 1.9 cm transverse is similar compared with previous PET CT and not significantly hypermetabolic on that exam. There is some fat in the inguinal canals bilaterally, no bowel. There is multilevel lumbar degenerative disc disease, facet degenerative change, and spondylosis. There is minimal posterior subluxation of L2 relative L3, L1 relative to L2, L5 relative to S1. There is variable multilevel lumbar neural foramina compromise. There is mild lumbar dextroscoliosis. There is variable lateral recess stenosis of the lumbar spine. IMPRESSION: 1. There is no new CT evidence of metastatic disease to the abdomen and pelvis. 2. There is retained stool the colon. 3. There are again calcifications of the pancreas which may be due to sequela of chronic pancreatitis. 4. There is multilevel lumbar spondylosis, degenerative disc disease, facet degenerative change. There is multilevel lumbar neural foramina compromise, variable lateral recess stenosis. Electronically signed by: Tai cM MD (08/20/2018 1:39 PM) [id number]
== END | disposition home or self-care (01) ==
LOC: CT 09:48
PROVIDERS: ATTEND Internal Medicine Hematology & Oncology
DX: C34.12 Malignant neoplasm of upper lobe, left bronchus or lung (principal); I48.91 Unspecified atrial fibrillation; I10 Essential (primary) hypertension; J44.9 Chronic obstructive pulmonary disease, unspecified; F17.200 Nicotine dependence, unspecified, uncomplicated; Z72.89 Other problems related to lifestyle
CPT/HCPCS: 71260; 74177; Q9966; Q9967

== ENCOUNTER → 2018-09-20 | Outpatient (CLI) | payer OTHER ==
[2018-06-19 10:57] VITALS: BP 111/68
[~2018-09-20] MED LIST changes: -CONTRAST GIVEN. MC PRN; -IOHEXOL 240 MG/ML 50ML VIAL. PO ONE; -IOHEXOL 300 MG/ML 100ML VIAL. IV ONE
--- NOTE | 2018-09-21 03:13 | PAIN ---
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 HISTORY OF PRESENT ILLNESS: The patient is a 77-year-old male who returns for followup status post lumbar epidural steroid injection x 2 with about an 80% improvement in pain, but the pain is no longer in the leg anymore except for very rarely, it is across the low back, left side greater than right, worse especially in the morning when he gets out of bed. He reports after about an hour or two the pain subsides to a moderate extent where he can get through the rest of the day, but it is very painful in the morning. The patient reports it is a 9 on a scale of 10 at its worst, 7 on average, 2 at its least and is a 7 today. He reports aching, dull, tight and becoming more severe across the low back bilaterally, but again much worse on the left side. This is worse with extension of the spine and axial loading of the low back, better with forward flexion, right and left lateral rotation, it is worse with left lateral rotation greater than 10 degrees and moderately on the right with rotation as well. The patient reports it is worse with walking, standing, changing positions, better with sitting if he leans forward. It does not bother him when he is sleeping at night, lying down takes care of the pain. He sleeps 6-8 hours without awakening from the pain. The patient reports no new motor or sensory deficits, no new bowel or bladder incontinence or other complaints. He tried gabapentin, but was not helpful. His primary care physician took him off of this and he could not tell any difference. PHYSICAL EXAMINATION: VITAL SIGNS: Today, the patient's blood pressure 111/64, pulse 78, respirations 16, temperature 97.7 degrees Fahrenheit. Height is 5 feet 5 inches, weight is 184 pounds. GENERAL: The patient is awake, alert, oriented, appropriate, very pleasant demeanor. HEENT: Head shows normocephalic and atraumatic. The patient wears eyeglasses and nasal cannula oxygen. Oral cavity: Mucous membranes are moist and pink. Dentition is intact. NECK: Shows anterior throat is supple without palpable lymphadenopathy noted. Swallow reflex is symmetrical. CHEST: Shows normal on inspection. Breath sounds are clear to auscultation bilaterally. HEART: Shows S1, S2 clear. No murmurs are auscultated. ABDOMEN: Soft, nontender and nondistended. No palpable organomegaly is noted. No rebound or guarding demonstrated. BACK: Shows spine grossly in the midline. Slight exaggeration of thoracic kyphosis is noted. Some minor flattening of the lumbar lordotic curvature. Lumbar paraspinous muscle shows symmetrical on inspection. With palpation shows some moderate tenderness, but only diffusely in the low lumbar distribution of the paraspinous muscles, more on the left than the right. No tenderness over the sacrum or sacroiliac regions. The patient shows good rotational motion again with significant pain with left lateral rotation greater than 10 degrees as well as right lateral rotation to moderate pain. Extension is severe with pain bilaterally, again worse on the left than the right. Forward flexion decreases the pain at 45 degrees. EXTREMITIES: Lower extremities show deep tendon reflexes at 2+ in the patellar and 1+ tendo calcaneus tendons. Motor exam is approximately 4 on a scale of 5 on the left and 5/5 on the right with dorsiflexion and extension. Peripheral pulses are 1+ posterior tibial without edema bilaterally. Options were discussed with the patient. The patient's old chart was reviewed as was his current medication regimen updated. Current review of systems updated today as well and we will preauthorize the patient for bilateral lumbar facet joint injections, L4-L5 and L5-S1 levels as the patient has significant axial pain with axial loading of the low back and lumbar facets, again worse on the left than the right, but present bilaterally without significant radiation to the lower extremities at this time. The patient will continue to do his physical therapy exercises as he has been through physical therapy program recently earlier this year and will maintain mobility as best he can especially with walking and will continue stretching as noted. We will check with the patient's vessel traffic officer as well for holding his Eliquis for 3 days prior to the procedure and proceed at that time. YANELI LOZA MD DR: JAQUELINE/naz JOB#: [id number] / [id number]
== END | disposition home or self-care (01) ==
LOC: PNCL 14:26
PROVIDERS: ATTEND Anesthesiology
DX: M51.36 Other intervertebral disc degeneration, lumbar region (principal); M47.897 Other spondylosis, lumbosacral region; M47.896 Other spondylosis, lumbar region
CPT/HCPCS: G0463

== ENCOUNTER → 2018-10-15 | Outpatient (CLI) | payer OTHER ==
[2018-06-19 10:57] VITALS: BP 111/68
[~2018-10-15] MED LIST changes: +BUPIVACAINE MPF 0.25% 10 ML VIAL. ONE; +IOHEXOL 180 MG/ML 10 ML VIAL. ONE; +LIDOCAINE 1% PF 2 ML VIAL. ONE; +methylPREDNISolone ACETATE 40 MG/ML VIAL. ONE; +methylPREDNISolone ACETATE 80 MG/ML VIAL. ONE
--- NOTE | 2018-10-15 22:02 | PAIN ---
DATE OF SERVICE: 10/15/2018 PROGRESS NOTE FOR PAIN CLINIC: DIAGNOSIS: Lumbar and lumbosacral spondylosis with lumbar degenerative disk disease. HISTORY OF PRESENT ILLNESS: The patient is a 77-year-old male who returns for followup status post evaluation and holding his Eliquis. He has been off of this now for 4 days actually. The patient reports still significant pain in the low back, somewhat worse on the right than the left, but present bilaterally across the low back, worse with walking, standing, even sitting for prolonged periods and better at night. It does not usually awaken him from sleep, but worse with getting up in the morning, especially pain with walking and standing. The patient reports it is sharp alternate with dull type feeling, on and off in intensity, worse with activity, standing, walking, changing positions, rated it is as a 9 on a scale of 10 at its worst, 5 on average, 2 at its least and is a 5 today. The patient reports no new motor or sensory deficits. No new bowel or bladder incontinence. No specific radiation to the lower extremities at this time, slightly in the left gluteus at times, but otherwise all in the back itself. The patient reports no other changes. PHYSICAL EXAMINATION: VITAL SIGNS: The patient's blood pressure is 96/63, pulse 80, respirations 16, temperature 97.9 degrees Fahrenheit. Height is 5 foot 5 inches and weight is 182 pounds. GENERAL: The patient is awake, alert, oriented, appropriate and very pleasant demeanor. HEENT: Head shows normocephalic and atraumatic. Extraocular movements are intact and symmetrical. The patient is wearing eyeglasses and nasal cannula oxygen. NECK: Shows anterior throat is supple without palpable lymphadenopathy noted. Oral cavity: Mucous membranes are moist and pink. Dentition is intact. CHEST: Shows breath sounds are clear to auscultation bilaterally. HEART: Shows S1 and S2 clear and chest is normal on inspection. ABDOMEN: Soft, nontender and nondistended. No palpable organomegaly is noted. No rebound or guarding demonstrated BACK: Shows spine grossly in the midline. Slight exaggeration of thoracic kyphosis and mild flattening of the lumbar lordotic curvature. Lumbar paraspinals musculature shows symmetrical on inspection. With palpation shows some moderate tenderness in the low lumbar distribution, slightly more on the right than the left, but present bilaterally. The patient has good rotation of motion, but with significant pain with extension over the lumbar spine and axial loading at the low back. This is better with forward flexion, right and left lateral rotation at 10 degrees is worse on the right than left, but present with pain bilaterally with each rotation. EXTREMITIES: Lower extremities show deep tendon reflexes 2+ in the patellar and 1+ in the tendo calcaneus tendons. Motor exam is approximately 4 on a scale of 5 on the left and 5/5 on the right with dorsiflexion and extension. Peripheral pulses are 1+. No peripheral edema is noted bilaterally. Options were discussed with the patient and the patient's old chart was reviewed as was his current medication regimen updated. Current review of systems updated today as well. We will proceed with bilateral L4-L5 and L5-S1 facet joint injections under fluoroscopic guidance. Risks were again discussed including, but not limited to bleeding, infection, possibility of epidural hematoma and subsequent neurological compromise, dural puncture, headaches, spinal cord and/or nerve damage, side effects of steroid medication and poor results regarding pain control. The patient understands and wished to proceed. The patient will return to the clinic in approximately 2 weeks for followup, was counseled as to return appointment, activity level, and side effects to be aware of. The patient will restart his Eliquis later this evening as instructed. DIAGNOSIS: Lumbar and lumbosacral spondylosis. PROCEDURE: Bilateral L4-L5 and L5-S1 facet joint injections using C-arm fluoroscopic guidance under sterile prep and drape using local anesthetic. MEDICATIONS INJECTED: A total of 4 mL of 0.25% bupivacaine and 2 mL of Isovue for contrast total, 120 mg total of Depo-Medrol. CONDITION AT DISCHARGE: Stable. The patient tolerated the procedure well and had no complications. YANELI LOZA MD DR: JAQUELINE/naz JOB#: [id number] / [id number]
== END | disposition home or self-care (01) ==
LOC: PNCL 11:33
PROVIDERS: ATTEND Anesthesiology
DX: M47.817 Spondylosis without myelopathy or radiculopathy, lumbosacral region (principal); M51.36 Other intervertebral disc degeneration, lumbar region
CPT/HCPCS: 64493; 64494; J1030; J1040; J3490; Q9965

== ENCOUNTER → 2018-11-12 | Outpatient (CLI) | payer OTHER ==
[2018-06-19 10:57] VITALS: BP 111/68
[~2018-11-12] MED LIST changes: -BUPIVACAINE MPF 0.25% 10 ML VIAL. ONE; -IOHEXOL 180 MG/ML 10 ML VIAL. ONE; -LIDOCAINE 1% PF 2 ML VIAL. ONE; -methylPREDNISolone ACETATE 40 MG/ML VIAL. ONE; -methylPREDNISolone ACETATE 80 MG/ML VIAL. ONE
--- NOTE | 2018-11-12 23:49 | PAIN ---
DATE OF SERVICE: 11/12/2018 PROGRESS NOTE FOR PAIN CLINIC DIAGNOSES: Lumbar degenerative disk disease, lumbar and lumbosacral spondylosis. HISTORY OF PRESENT ILLNESS: The patient is a 77-year-old male who returns for followup status post bilateral L4-L5 and L5-S1 facet joint injection. The patient reports about 80% improvement for the first 4 weeks since his injections. The patient reports he is remarkably impressed the pain was decreased as much as it was. The patient reports his highest pain is a 4 on a scale of 10 now, a 3 at its average and 2 at its least and a 2 today. The patient reports this feels tight across the low back, also some burning and aching pain, worse with extension of the lumbar spine and axial loading of the low back but also with some rotational motion, somewhat worse on the right than the left but present bilaterally. The patient reports he is sleeping better at night with increased activity with greater distance walking and doing activities at home and traveling with much greater ease and comfort. This is starting to return now but only minimally. The patient reports no new motor or sensory deficits, reports the pain is tight and tingly, also aching and dull, sometimes worse with first getting out of bed in the morning and then with sitting for prolonged periods but generally sitting helps the pain, does not awaken him from sleep at night with lying down. PHYSICAL EXAMINATION: VITAL SIGNS: The patient's blood pressure 117/68, pulse 68, respirations 18 and temperature 97.7 degrees Fahrenheit. Height 5 feet 7 inches and weighs 185 pounds. GENERAL: The patient is awake, alert, oriented, appropriate and very pleasant demeanor. HEENT: Head is normocephalic and atraumatic. Extraocular movements are intact and symmetrical. Oral cavity: Mucous membranes are moist and pink. Dentition intact. NECK: Shows anterior throat supple without palpable lymphadenopathy noted. Swallow reflex symmetrical. CHEST: Shows normal with inspection. Breath sounds clear to auscultation bilaterally. HEART: Shows S1 and S2 clear. No murmurs auscultated. ABDOMEN: Soft, nontender and nondistended. No palpable organomegaly is noted. No rebound or guarding demonstrated. BACK: Shows spine grossly in the midline. Normal appearing thoracic kyphosis, some minor flattening of lumbar lordotic curvature. Lumbar paraspinous muscle shows symmetrical on inspection, on palpation shows moderate tenderness diffusely in the middle and lower distribution of the paraspinous muscles. The patient has good rotational motion but with some moderate pain increase with right lateral rotation past 10 degrees as well as left lateral rotation at 10 degrees, extension 10 degrees causes more pain with axial loading and extension of the low back. Forward flexion decreases this pain and is full to 45 degrees. EXTREMITIES: Lower extremities show deep tendon reflexes 2+ in the patellar, 1+ tendo-calcaneus tendons. Motor exam is approximately 4 on a scale 5 on the left with dorsiflexion and extension, 5/5 on the right. Peripheral pulses are 1+ posterior tibial. No peripheral edema is noted bilaterally. Options were discussed with the patient. The patient's old chart was reviewed as well as his current medication regimen updated. Current review of systems updated today as well. We will preauthorize the patient for a repeat L4-L5 and L5-S1 facet joint injections and preparation for potential radiofrequency ablation in the future as the patient did very well after his first injections as we would like to reproduce these. The patient will wait for preauthorization from insurance provider and we will proceed with L4-L5 and L5-S1 bilateral lumbar facet injections at that time. The patient will continue to do stretching and strengthening exercises. Continue to encourage him to do walking daily as he is tolerating and return as scheduled. YANELI LOZA MD DR: JAQUELINE/naz JOB#: [id number] / [id number]
== END | disposition home or self-care (01) ==
LOC: PNCL 11:23
PROVIDERS: ATTEND Anesthesiology
DX: M51.36 Other intervertebral disc degeneration, lumbar region (principal); M47.897 Other spondylosis, lumbosacral region
CPT/HCPCS: G0463

== ENCOUNTER → 2018-12-03 | Outpatient (CLI) | payer OTHER ==
[2018-06-19 10:57] VITALS: BP 111/68
[~2018-12-03] MED LIST changes: +BUPIVACAINE MPF 0.25% 10 ML VIAL. ONE; +IOHEXOL 180 MG/ML 10 ML VIAL. ONE; +methylPREDNISolone ACETATE 40 MG/ML VIAL. ONE; +methylPREDNISolone ACETATE 80 MG/ML VIAL. ONE
--- NOTE | 2018-12-03 13:31 | PAIN ---
DATE OF SERVICE: 12/03/2018 DIAGNOSES: Lumbar radiculopathy with lumbar degenerative disk disease, lumbar spondylosis and lumbosacral spondylosis. HISTORY OF PRESENT ILLNESS: The patient is a 78-year-old male who returns for followup status post preauthorization for bilateral lumbar facet joint injection. The patient did very well with the initial injection of about 80% improved after injections on 10/15/2018. The patient reports the pain is returning in the low back bilaterally without specific radiation in the lower extremities, but in the low back, worse with extension, worse with rotational motion and standing and walking. The patient reports a sharp alternating with dull, also tight feeling in the low back, becoming more constant, on and off in intensity, but becoming more severe. The patient reports it is a 7 on a scale of 10 at its worst, 4 on average, 3 at its least and is a 4 today, worse on the left side than the right, but present bilaterally. The patient reports it does not awaken him from sleep at night, much better with sitting or lying down. The patient reports no new motor or sensory deficits, no new bowel or bladder incontinence or other complaints. PHYSICAL EXAMINATION: VITAL SIGNS: The patient's blood pressure 105/52, pulse 48, respirations 18, temperature 97.9 degrees Fahrenheit. Height 5 feet 7 inches, weighs 179 pounds. GENERAL: The patient is awake, alert, oriented, appropriate, very pleasant demeanor. HEENT: Head shows normocephalic, atraumatic. Extraocular movements intact and symmetrical. Oral cavity: Mucous membranes moist and pink. Dentition is intact. NECK: Shows anterior throat supple without palpable lymphadenopathy noted. Swallow reflex symmetrical. CHEST: Shows normal on inspection. Breath sounds clear to auscultation bilaterally. HEART: Shows S1, S2 clear. No murmurs auscultated. ABDOMEN: Soft, nontender, nondistended. No palpable organomegaly is noted. No rebound or guarding demonstrated. BACK: The patient's back shows spine grossly in the midline. Slight exaggeration of thoracic kyphosis and minor flattening of lumbar lordotic curvature. Lumbar paraspinous muscle shows symmetrical on inspection and palpation shows some moderate tenderness in the low lumbar distribution bilaterally, but only diffusely in the lumbar paraspinous muscles without radiation, without trigger points. The patient shows good rotational motion, but significant pain with extension greater than 10 degrees and axial loading of the low back, better with forward flexion at 45 degrees with pain to decrease. The patient shows tenderness, more to the left with rotation greater than 10 degrees and mild pain with rotation to the right at 10 degrees. EXTREMITIES: Lower extremities show deep tendon reflexes at 2+ in the patellar, 1+ tendo calcaneus tendons. Motor exam is approximately 4 on a scale of 5 on the left and 5/5 on the right with dorsiflexion and extension. Peripheral pulses are 1+ posterior tibial. No peripheral edema is noted bilaterally. Options were discussed with the patient. The patient's old chart was reviewed as his current medication regimen updated. Current review of systems updated today as well. We will proceed with bilateral L4-L5 and L5-S1 facet joint injections under fluoroscopic guidance. Risks were again discussed including, but not limited to bleeding, infection, possibility of epidural hematoma, subsequent neurologic compromise, dural puncture, headaches, spinal cord and/or nerve damage, side effects of steroid medication and poor results regarding pain control. The patient understands and wished to proceed. The patient will return to clinic in approximately 2 weeks for followup. She was counseled on return appointment, activity level and side effects to be aware of. We discussed possibility if the patient does well with this diagnostic block today, we may discuss radiofrequency ablation in the future. The patient is interested in discussing this further as well. DIAGNOSIS: Lumbar and lumbosacral spondylosis. PROCEDURES: Bilateral L4-L5 and L5-S1 facet joint injections using C-arm fluoroscopic guidance under sterile prep and drape using local anesthetic. MEDICATION INJECTED: A total of 120 mg Depo-Medrol, plus total of 4 mL of 0.25% bupivacaine after negative aspiration and total of 2 mL of Isovue for contrast. CONDITION AT DISCHARGE: Stable. The patient tolerated the procedure well, had no complications. YANELI LOZA MD DR: JAQUELINE/naz JOB#: [id number] / [id number]
== END | disposition home or self-care (01) ==
LOC: PNCL 11:28
PROVIDERS: ATTEND Anesthesiology
DX: M51.16 Intervertebral disc disorders with radiculopathy, lumbar region (principal); M47.817 Spondylosis without myelopathy or radiculopathy, lumbosacral region; Z98.890 Other specified postprocedural states
CPT/HCPCS: 64493; 64494; J1030; J1040; J3490; Q9965

== ENCOUNTER → 2018-12-24 | Outpatient (CLI) | payer OTHER ==
[2018-06-19 10:57] VITALS: BP 111/68
[~2018-12-24] MED LIST changes: -BUPIVACAINE MPF 0.25% 10 ML VIAL. ONE; -IOHEXOL 180 MG/ML 10 ML VIAL. ONE; -methylPREDNISolone ACETATE 40 MG/ML VIAL. ONE; -methylPREDNISolone ACETATE 80 MG/ML VIAL. ONE
--- NOTE | 2018-12-24 21:19 | PAIN ---
DATE OF SERVICE: 12/24/2018 DIAGNOSES: Lumbar degenerative disk disease of lumbar and lumbosacral spondylosis. HISTORY OF PRESENT ILLNESS: The patient is a 78-year-old male who returns for followup status post bilateral L4-L5 and L5-S1 facet joint injections. This is the second set of injections he has had and did very well with reproduction of results with about 90% improvement for the first 2-1/2 weeks to 3 weeks. The patient reports there is still about 50% improved even after 3 weeks following the injections. The patient reports still pain across the low back without radiation to lower extremities, which is aching, dull, tight, becoming more constant, but on and off in intensity, worse with activity, worse with extension and axial loading of the low back, especially better with forward flexion, right and left lateral rotation causes some moderate tenderness bilaterally in the lower lumbar distribution, but without radiation once again. The patient reports his pain has been a 4 on a scale of 10 at its worst in the last week, 2 on average, 1 at its least and is a 2 today. Prior to that, it was much more uncomfortable. The patient reports he has been increasing his activity with greater ease and comfort, has been traveling with greater ease, has been doing activities around the house with much better ability and sleeping better at night. The patient reports it does not awaken him from sleep. He sleeps 8 hours a night without difficulty. Again, the pain has reduced significantly for a second time after the diagnostic lumbar facet injections for several weeks by about 90%. The patient was very pleased with it, now it is wearing down a bit and becoming more noticeable. The patient reports no new motor or sensory deficits, no new bowel or bladder incontinence or other complaints. He continues to stay active and is doing stretching and strengthening exercises daily and walking as best of his ability and again this has been less lately with increased pain and with some increased cold weather that we had. PHYSICAL EXAMINATION: VITAL SIGNS: Today, the patient's blood pressure is 124/77, pulse 70, respirations 18, temperature is 97.6 degrees Fahrenheit, height is 5 feet 7 inches, weighs 179 pounds. GENERAL: The patient is awake, alert, oriented, appropriate, very pleasant demeanor. The patient is accompanied by his spouse. HEENT: Head shows normocephalic, atraumatic. The patient wears eyeglasses. Extraocular movements are intact and symmetrical. Oral cavity: Mucous membranes moist and pink. Dentition is intact. The patient is wearing nasal cannula oxygen. NECK: Shows anterior throat supple without palpable lymphadenopathy noted. Swallow reflex is symmetrical. CHEST: Shows normal with inspection. Breath sounds are distant, but clear to auscultation bilaterally. No wheezes, rales or rhonchi are auscultated. HEART: Shows S1, S2 clear. No murmurs auscultated. ABDOMEN: Obese, but soft, nontender, nondistended. No palpable organomegaly is noted. No rebound or guarding demonstrated. BACK: Shows spine grossly in the midline. Slight exaggeration of thoracic kyphosis, some minor flattening of lumbar lordotic curvature. Lumbar paraspinous muscle shows symmetrical on inspection, on palpation shows some moderate tenderness in the middle and lower distribution of paraspinous musculature diffusely, but without significant radiation. The patient has no tenderness over the spinous processes, sacrum or sacroiliac regions. With rotation, the patient does show some significant pain with extension and axial loading of the lumbar spine across the low back, right essentially equal to left. Right and left lateral rotation shows some moderate pain in the same region. Forward flexion 45 degrees actually decreases the pain and the patient reports this is more comfortable in this position. EXTREMITIES: Lower extremities show deep tendon reflexes at 2+ in the patellar, 1+ tendo calcaneus tendons. Motor exam is approximately 4 on a scale of 5 on the left and 5/5 on the right with dorsiflexion and extension. Peripheral pulses are 1+ posterior tibial. No peripheral edema is noted bilaterally. Options were discussed with the patient. The patient's old chart was reviewed as well as his current medication regimen updated. Current review of systems updated today as well and we will preauthorize the patient for a radiofrequency ablation of the bilateral medial branches at L4-L5 and L5-S1. The patient has done very well with diagnostic blocks about 90% improvement repeated twice for a good 2-1/2 to 3 weeks following the procedure each time again with significant pain returning in the low back itself without radiation into the lower extremities, especially with axial loading in the low back. The patient will await preauthorization and we will have him return and plan on radiofrequency ablation bilateral L4-L5 and L5-S1 medial branches at that time. YANELI LOZA MD DR: Daniel JOB#: [id number] / [id number]
== END | disposition home or self-care (01) ==
LOC: PNCL 10:41
PROVIDERS: ATTEND Anesthesiology
DX: M51.36 Other intervertebral disc degeneration, lumbar region (principal); M47.817 Spondylosis without myelopathy or radiculopathy, lumbosacral region
CPT/HCPCS: G0463

== ENCOUNTER → 2019-01-14 | Outpatient (CLI) | payer OTHER ==
[2018-06-19 10:57] VITALS: BP 111/68
[~2019-01-14] MED LIST changes: +BUPIVACAINE MPF 0.25% 10 ML VIAL. ONE; +LIDOCAINE 1% PF 2 ML VIAL. ONE; +LIDOCAINE 2% PF 5 ML VIAL. ONE; +methylPREDNISolone ACETATE 40 MG/ML VIAL. ONE; +methylPREDNISolone ACETATE 80 MG/ML VIAL. ONE
--- NOTE | 2019-01-15 01:26 | PAIN ---
DATE OF SERVICE: 01/14/2019 PROGRESS NOTE FOR PAIN CLINIC DIAGNOSES: Lumbar degenerative disk disease, lumbar and lumbosacral spondylosis. HISTORY OF PRESENT ILLNESS: The patient is a 78-year-old male who returns for followup status post facet joint injections at L4-L5 and L5-S1 levels bilaterally with good, about 90% improvement for about 2-1/2 to 3 weeks following the injections. The patient has had this done twice now. Pain keeps returning now in the low back without radiation to lower extremities, but in the low back itself, left side worse than the right, worse with standing, walking and sitting for prolonged periods, changing positions, especially with extension of the lumbar spine, rearward extension and axial loading of the low back with significant pain, also with right and left lateral rotation, worse to the left. The patient reports pain is 8 on a scale of 10 at its worst, 3 on average, 2 at its least and is a 3 today. The patient it is aching, dull, tight, sometimes unbearable, but off and on in intensity, better at night. The patient reports he sleeps well when he gets offs of his back and lying down. The patient reports no new motor or sensory deficits, no new bowel or bladder incontinence or other complaints. PHYSICAL EXAMINATION: VITAL SIGNS: The patient's blood pressure is 109/69, pulse 80, respirations 16, temperature 97.3 degrees Fahrenheit. Height is 5 feet 5 inches, weight is 182 pounds. GENERAL: The patient is awake, alert, oriented, appropriate, very pleasant demeanor. HEENT: Head shows normocephalic, atraumatic. Extraocular movements are intact and symmetrical. Oral cavity: Mucous membranes moist and pink. Dentition is intact. NECK: Shows anterior throat supple without palpable lymphadenopathy noted. CHEST: Shows normal with inspection. Breath sounds clear to auscultation bilaterally. HEART: Shows S1, S2 clear. No murmurs auscultated. ABDOMEN: Soft, obese, nontender, nondistended. BACK: Shows spine grossly in the midline, slight exaggeration of thoracic kyphosis and minor flattening of lumbar lordotic curvature. Lumbar paraspinous muscle shows symmetrical on inspection, on palpation shows some moderate tenderness in the low lumbar distribution bilaterally, but without radiation, this is equal in right and left. No tenderness over the sacrum or sacroiliac regions or the spinous processes. EXTREMITIES: The patient's lower extremities show deep tendon reflexes at 2+ in the patellar, 1+ in tendo calcaneus tendons. Motor exam is approximately 4 on a scale 5 in the left with dorsiflexion and extension, 5/5 on the right. Peripheral pulses are 1+ posterior tibial. No peripheral edema is noted. Options were discussed with the patient. The patient's old chart was reviewed as his current medication regimen updated. Current review of systems updated today as well and we will proceed with bilateral L4-L5 and L5-S1 medial branch radiofrequency ablation. Risks were discussed including, but not limited to, bleeding, infection, possibility of epidural hematoma, subsequent neurologic compromise, dural puncture, headaches, spinal cord and/or nerve damage, potential thermal damage to the surrounding structures and motor damage including paralysis as well as exposure to fluoroscopy, steroids and poor results regarding pain control. The patient understands and wished to proceed. The patient will return to the clinic in approximately 4 weeks for followup, was counseled on his return appointment, activity level and side effects to be aware of. DIAGNOSIS: Lumbar and lumbosacral spondylosis. PROCEDURE: Bilateral L4-L5 and L5-S1 radiofrequency medial branch ablation under sterile prep and drape using local anesthetic. MEDICATION INJECTED: A total of 6 mL of 2% lidocaine, 1 mL at each medial branch level after motor testing and needle placement and prior to radiofrequency ablation, also 0.25% bupivacaine, total of 6, 1 mL per level after radiofrequency ablation with 120 mg Depo-Medrol divided evenly among the 6 areas of injection as well. Please see radiofrequency flow sheet for impedances, times, temperatures, levels, etc. CONDITION AT DISCHARGE: Stable. The patient tolerated the procedure well, had no immediate complications. YANELI LOZA MD DR: JAQUELINE/naz JOB#: [id number] / [id number]
== END | disposition home or self-care (01) ==
LOC: PNCL 10:43
PROVIDERS: ATTEND Anesthesiology
DX: M47.817 Spondylosis without myelopathy or radiculopathy, lumbosacral region (principal); M51.36 Other intervertebral disc degeneration, lumbar region
CPT/HCPCS: 64635; 64636; J1030; J1040; J2001; J3490

== ENCOUNTER → 2019-02-14 | Outpatient (CLI) | payer OTHER ==
[2018-06-19 10:57] VITALS: BP 111/68
[~2019-02-14] MED LIST changes: -BUPIVACAINE MPF 0.25% 10 ML VIAL. ONE; -LIDOCAINE 1% PF 2 ML VIAL. ONE; -LIDOCAINE 2% PF 5 ML VIAL. ONE; -methylPREDNISolone ACETATE 40 MG/ML VIAL. ONE; -methylPREDNISolone ACETATE 80 MG/ML VIAL. ONE
--- NOTE | 2019-02-15 03:53 | PAIN ---
DATE OF SERVICE: 02/14/2019 DIAGNOSIS: Lumbar radiculopathy with lumbar degenerative disk disease and lumbar spondylosis with lumbar and lumbosacral spondylosis. HISTORY OF PRESENT ILLNESS: The patient is a 78-year-old male who returns for followup status post radiofrequency ablation at bilateral L4-L5 and L5-S1 levels medial branches on his last visit, which was 01/20/2019. The patient reports he did well, but only for about a month or so. The pain has been coming back now for the last week. The pain is in the low back itself bilaterally, occasional radiation to the left leg, but mostly just in the low back. The patient reports it is 8 on a scale of 10 at its worst, 3 on average, 1 at its least and 3 today. The patient reports it is aching, dull, tight, constant in the morning, severe. As the day goes on, gets much better. However, the patient reports it is just in the morning when he gets out of bed the pain is at its worst. Leaning on some objects or using a cart at the grocery store to lean on that decrease the pain almost 100%. The patient reports it does not awaken him from sleep at night, it is better with sitting or lying down when the pain is almost gone. The patient reports again the radiofrequency helped, but only for about a month. The pain is essentially back similar to where it started prior to that. The patient reports no new motor or sensory deficits, no new bowel or bladder incontinence or other complaints. PHYSICAL EXAMINATION: VITAL SIGNS: The patient's blood pressure is 94/57, pulse 63, respirations 18, temperature 98.2 degrees Fahrenheit, height is 5 feet 5 inches, weighs 184 pounds. GENERAL: The patient is awake, alert, oriented, appropriate, very pleasant demeanor. The patient is accompanied by his spouse. HEENT: Normocephalic, atraumatic. Extraocular movements are intact and symmetrical. Oral cavity: Mucous membranes moist and pink. Dentition is intact. NECK: Shows anterior throat supple without palpable lymphadenopathy noted. Swallow reflex is symmetrical. CHEST: Shows normal on inspection. Breath sounds clear to auscultation bilaterally, but distant. HEART: Shows S1, S2 clear. No murmurs auscultated. ABDOMEN: Obese, soft, nontender, nondistended. No palpable organomegaly is noted. No rebound or guarding demonstrated. BACK: Shows spine grossly in the midline. Normal-appearing thoracic kyphosis, some minor flattening of lumbar lordotic curvature. Lumbar paraspinous muscle shows symmetrical on inspection, on palpation shows some moderate tenderness diffusely throughout the upper, middle and lower distribution of the paraspinous muscle, but only diffusely without radiation. The patient shows good rotation of motion with some minor tenderness with extension, but not with forward flexion. Right and left lateral rotation is nontender. EXTREMITIES: The patient's lower extremities show deep tendon reflexes 2+ in the patellar, 1+ tendo-calcaneus tendons. Motor exam is approximately 4 on a scale of 5 on the left dorsiflexion, extension and 5/5 on the right. Peripheral pulses are 1+ posterior tibial. No peripheral edema is noted bilaterally. Options were discussed with the patient. The patient's old chart was reviewed as was his current medication regimen updated. Current review of systems updated today as well. We will hold on any further injections at this time. We did discuss some other options including physical therapy, stretching and strengthening exercises and a back brace which the patient may do well with wearing only in the mornings. We will have him fitted for a lumbar support brace and see how this does. The patient also would like to explore further facet joint injections. I discussed this with he and his and we will have him follow up in approximately a month or so to see how he does with the back brace first and then proceed at that point. YANELI LOZA MD DR: JAQUELINE/naz JOB#: [id number] / [id number]
== END | disposition home or self-care (01) ==
LOC: PNCL 10:55
PROVIDERS: ATTEND Anesthesiology
DX: M51.16 Intervertebral disc disorders with radiculopathy, lumbar region (principal); M47.26 Other spondylosis with radiculopathy, lumbar region; M47.818 Spondylosis without myelopathy or radiculopathy, sacral and sacrococcygeal region
CPT/HCPCS: G0463

== ENCOUNTER → 2019-02-22 | Outpatient (CLI) | payer OTHER ==
[2018-06-19 10:57] VITALS: BP 111/68
[~2019-02-22] MED LIST changes: +IOHEXOL 240 MG/ML 50ML VIAL. PO ONE; +IOHEXOL 300 MG/ML 100ML VIAL. IV ONE
[2019-02-22 14:02] LABS: CREATININE 0.6 mg/dL (0.7-1.3)
--- NOTE | 2019-02-22 15:29 | RAD ---
Examination: CT CHEST ABD PELVIS W/CONTRAST History: MALIGNANT NEOPLASM OF UPPER LOBE OF LEFT LUNG
IV OMNI 300 75 MLS AND PO OMNI 240 50 MLS
PREVIOUS Comparison/Correlation: 08/20/2018 CT chest abdomen and pelvis with contrast Findings: Axial images of chest, abdomen, and pelvis were obtained following IV contrast. Oral contrast was administered. Sagittal and coronal reformatted images were provided. Coronary arterial calcification is present. No enlarged thoracic lymph nodes. Tracheomalacia is present. Posterior right mid thoracic pleural calcification noted. Right paraspinal 0.9 cm diameter juxtapleural nodule is present and new compared to the prior exam. Minimal enhancement about its periphery or possibly calcification is questioned. Residual nodular scarring at the posterior left upper to mid thoracic level is present best seen on axial image 21 of series 2 and this is less decreased in volume as compared to the prior exam. Left medial mid to lower thoracic extrapleural nodule is new in the interval measuring up to 0.74 cm diameter. This is best seen on axial image 29 of series 2. A mass is present adjacent to mediastinum at the left upper lobe just superior to the bronchial stump level. This intermediate density mass measures 4.2 cm anteroposterior by 2.6 cm transverse by 2.2 cm longitudinal. Left lateral basilar pleural thickening or atelectasis is minimal. Left thoracotomy findings and left upper lobectomy is noted. Liver and spleen are normal. Pancreas is unremarkable. Kidneys are normal. Nodular appearance of the adrenal glands noted. Kidneys are unremarkable. Right lower renal pole cyst is present. Moderate quantity of stool is present in the colon. No ascites or pelvic free fluid. No pelvic mass lesions. No enlarged pelvic lymph nodes. Mixed lytic and sclerotic findings of the bony structures noted. This is most evident involving the lumbar spine and bony pelvis. Impression: Interval development of new pulmonary nodules and and a left pulmonary mass. Metastatic involvement is of concern. Numerous lytic lucencies involving the lumbar spine and bony pelvis. Sclerotic foci also suggested. Findings are of concern for bony metastatic involvement. Left upper lobectomy. No change in adrenal gland nodular appearance. PQRS Compliance Statement: One or more of the following individualized dose reduction techniques were utilized for this examination: 1. Automated exposure control 2. Adjustment of the mA and/or kV according to patient size 3. Use of iterative reconstruction technique Electronically signed by: Torres Tinajero MD (02/22/2019 3:26 PM) [facility]
== END | disposition home or self-care (01) ==
LOC: CT 13:36
PROVIDERS: ATTEND Internal Medicine Hematology & Oncology
DX: C34.12 Malignant neoplasm of upper lobe, left bronchus or lung (principal); R91.8 Other nonspecific abnormal finding of lung field; I25.10 Atherosclerotic heart disease of native coronary artery without angina pectoris; J39.8 Other specified diseases of upper respiratory tract; J94.8 Other specified pleural conditions; N28.1 Cyst of kidney, acquired; Z90.2 Acquired absence of lung [part of]; Z87.891 Personal history of nicotine dependence
CPT/HCPCS: 36415; 71260; 74177; 82565; Q9966; Q9967

== ENCOUNTER → 2019-03-03 | Outpatient (CLI) | payer OTHER ==
[2018-06-19 10:57] VITALS: BP 111/68
[~2019-03-03] MED LIST changes: -IOHEXOL 240 MG/ML 50ML VIAL. PO ONE; -IOHEXOL 300 MG/ML 100ML VIAL. IV ONE
--- NOTE | 2019-03-03 15:08 | RAD ---
FDG tumor localization scan, PET/CT, 03/03/2019: History: Restaging lung cancer Following IV injection of 13.8 mCi of 18 F-FDG, imaging was performed from the skull base to the proximal thighs. The noncontrast CT component was performed for attenuation correction and anatomic localization purposes rather than for primary diagnosis. The patient's blood glucose level at the time of injection was 99 MG/DL. Comparison is made to a study from 10/22/2017. By history there has been an interval left upper lobectomy. A lobulated 2.1 x 4.5 cm hypermetabolic mass is now present along the anterior aspect of left hilum and left side of the left main pulmonary artery. It appears to lie within the mediastinum and the lung parenchyma. It demonstrates a maximum SUV of 6.8. The appearance is compatible with tumor recurrence. There is a new 7 mm subpleural nodule in the posteromedial aspect of the left lung just below the level left hilum. It does not demonstrate increased FDG uptake, however, that may be due to its small size. An 8 mm subpleural nodule in the posteromedial aspect of the right lung is also new. It is not FDG PET positive. A new 9 mm nodule in the right lung base laterally demonstrates faint FDG uptake with a maximum SUV of 1.1. There are 2 small foci of slightly increased activity in the central mediastinum along the superior aspect of the left atrium. These do not correspond in location to visible enlarged lymph nodes. The maximum SUV is 3.0. No definite additional mediastinal adenopathy is seen. Normal GI tract and urinary tract activity is present in the abdomen and pelvis. No hypermetabolic abdominal or pelvic lesion is seen. There are extensive degenerative changes in the spine. No definite hypermetabolic bone lesion is seen. Incidental CT findings include the presence of calcific pleural plaquing in the right chest. There is atherosclerotic calcification of the thoracic aorta. Scattered coronary artery calcifications are present. IMPRESSION: 1. Hypermetabolic mass along the superior aspect of the left hilum involving the mediastinum compatible with recurrent malignancy. 2. New small bilateral pulmonary nodules as described above, only one of which demonstrates low level FDG uptake. The lack of avid uptake in these nodules is probably due to their small sizes. Metastatic disease is likely.
== END | disposition home or self-care (01) ==
LOC: PETSC 13:59
PROVIDERS: ATTEND Internal Medicine Hematology & Oncology
DX: C34.12 Malignant neoplasm of upper lobe, left bronchus or lung (principal); R91.8 Other nonspecific abnormal finding of lung field; I70.0 Atherosclerosis of aorta
CPT/HCPCS: 78815; A9552

== ENCOUNTER → 2019-05-26 | Outpatient (CLI) | payer OTHER ==
[2018-06-19 10:57] VITALS: BP 111/68
--- NOTE | 2019-05-27 11:39 | RAD ---
Examination: PET CT skull of midline History: Lung cancer restaging Comparison/Correlation: 03/03/2019 PET/CT exam, 02/22/2019 CT chest abdomen pelvis with contrast Findings: PET CT exam was performed following administration of 13.12 mCi F-18 FDG intravenously. Blood glucose level at the time of injection was 101 mg/dL. Uptake of radiotracer involving the visualized head and neck is unremarkable. SUV max of up to 10 is noted involving the patient's known left hilar mass which extends superiorly. Central photopenia is evident within this mass. This mass is increased in size compared to previous examination currently measuring 5.9 cm anteroposterior by 2.2 cm transverse by 3.1 cm longitudinal. This represents an increase by at least 1.5 cm in the axial plane and approximately by 1 cm in the longitudinal plane. Notable increase in a left lower lobe paraspinal juxtapleural mass is evident with measurement currently of 2.5 cm x 1.9 cm. SUV max of 10 is noted involving this nodule. Notable increase in size of right lung base nodules also is evident with intense uptake seen. At the right lateral lung base, nodules present measuring 1.8 cm diameter compared to 0.7 cm diameter previously. A more medial nodule at the right lung base currently measures 1.8 cm breast prior exam demonstrates a measurement of 0.6 cm. SUV max of 5.6 and 4.8 respectively noted. Low density nodule at the right lower paraspinal region is also present with mild uptake in this finding is new in the interval assessment of other nodules of the right lung is somewhat limited due to respiratory motion. A new nodule at the right lateral midthoracic level is present measuring 0.5 cm diameter but uptake is not evident in this may be due to its small size. Tracheomalacia is noted. Right small pericardial effusion is new in the interval. Small hiatal hernia is present. Uptake of radiotracer involving the abdomen and pelvis is unremarkable. Lytic lesions involving bony structures again seen. Impression: Interval increase in left hilar mass lesion. Photopenic central region presumably representing necrotic component noted. Increase in size of pulmonary nodules with uptake compatible with active metastatic disease. New right pulmonary nodule also is present compatible with progression of metastatic involvement. New small pericardial effusion. Diffuse, extensive bony lytic lesions again seen.
== END | disposition home or self-care (01) ==
LOC: PETSC 11:00
PROVIDERS: ATTEND Internal Medicine Hematology & Oncology
DX: Z08 Encounter for follow-up examination after completed treatment for malignant neoplasm (principal); R91.8 Other nonspecific abnormal finding of lung field; I31.3 Pericardial effusion (noninflammatory); K44.9 Diaphragmatic hernia without obstruction or gangrene; M89.9 Disorder of bone, unspecified; Z85.118 Personal history of other malignant neoplasm of bronchus and lung
CPT/HCPCS: 78815; A9552

== ENCOUNTER 2019-06-17 19:15 | Emergency (ER) | payer OTHER ==
[~2019-06-17] VITALS: Ht 170.2 cm; Wt 82.6 kg
--- NOTE | 2019-06-17 20:41 | RAD ---
Exam: Left hand 3 views INDICATION: Hematoma TECHNIQUE: Frontal, lateral oblique views of the left hand Comparisons: None FINDINGS: Extensive soft tissue swelling along the dorsal aspect of the carpals and metacarpals. Bone mineralization is normal. 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 No acute fracture. IMPRESSION: Extensive soft tissue swelling along the dorsal aspect of the carpal/metacarpals. Acute osseous abnormality is not identified. Degenerative changes described above. Electronically signed by: Adeline Vaz MD (06/17/2019 8:39 PM) [facility]
--- NOTE | 2019-06-17 20:58 | PHYS DOC ---
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 He is right handed. He is requesting x-rays only. ([employer] APRN) Review of Systems Review of Systems Constitutional: Denies fever or chills [] Eyes: Denies change in visual acuity, redness, or eye pain [] HENT: Denies nasal congestion or sore throat [] Respiratory: Denies cough or shortness of breath [] Cardiovascular: No additional information not addressed in HPI [] GI: Denies abdominal pain, nausea, vomiting, bloody stools or diarrhea [] : Denies dysuria or hematuria [] Musculoskeletal: Denies back pain or joint pain [] Integument: Reports left hand swelling Neurologic: Denies headache, focal weakness or sensory changes [] All other systems were reviewed and found to be within normal limits, except as documented in this note. ([employer] APRN) Allergies Allergies Allergies Coded Allergies Type Severity Reaction Last Updated Verified No Known Allergies Allergy Unknown 11/25/17 Yes (LOU MCDONOUGH MD) Physical Exam Physical Exam Constitutional: Well developed, well nourished, no acute distress, non-toxic appearance. [] HENT: Normocephalic, atraumatic, bilateral external ears normal, oropharynx moist, no oral exudates, nose normal. [] Eyes: PERRLA, EOMI, conjunctiva normal, no discharge. [] Neck: Normal range of motion, no tenderness, supple, no stridor. [] Cardiovascular:Heart rate regular rhythm, no murmur [] Lungs & Thorax: Bilateral breath sounds clear to auscultation [] Abdomen: Bowel sounds normal, soft, no tenderness, no masses, no pulsatile masses. [] Skin: Warm, dry, left dorsal hand with moderate soft tissue swelling and bruising. Neurovascular exam is intact to the left hand.ROM intact. Back: No tenderness, no CVA tenderness. [] Extremities: No tenderness, no cyanosis, no clubbing, ROM intact, no edema. [] Neurologic: Alert and oriented X 3, normal motor function, normal sensory function, no focal deficits noted. [] Psychologic: Affect normal, judgement normal, mood normal. [] ([employer] APRN) Current Patient Data Vital Signs Vital Signs Date Time Temp Pulse Resp B/P (MAP) Pulse Ox O2 Delivery O2 Flow Rate FiO2 06/17/19 21:11 90 24 152/83 (106) 90 Nasal Cannula 2.0 06/17/19 19:49 99.3 99.3 (LOU MCDONOUGH MD) EKG EKG [] (R[employer] APRN) Radiology/Procedures Radiology/Procedures []PROCEDURE: HAND LEFT 3V Exam: Left hand 3 views INDICATION: Hematoma TECHNIQUE: Frontal, lateral oblique views of the left hand Comparisons: None FINDINGS: Extensive soft tissue swelling along the dorsal aspect of the carpals and metacarpals. Bone mineralization is normal. 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 No acute fracture. IMPRESSION: Extensive soft tissue swelling along the dorsal aspect of the carpal/metacarpals. Acute osseous abnormality is not identified. Degenerative changes described above. Electronically signed by: Adeline Lockhart MD (06/17/2019 8:39 PM) [facility] DICTATED and SIGNED BY: ADELINE LOCKHART MD DATE: 06/17/192038 ([employer] APRN) Course & Med Decision Making Course & Med Decision Making Pertinent Labs and Imaging studies reviewed. (See chart for details) This is a 78-year-old male patient on end-stage COPD currently on hospice preferring no treatment, also on Eliquis for Afib presenting with left hand swelling and bruising that was noted this evening no injury. Patient would like an x-rays only. Left hand x-rays interpreted by radiologist was noted for extensive soft tissue swelling along the dorsal aspect of the carpal/metacarpals. Acute osseous abnormality is not identified, DJD. Left hand was wrapped in an Colby bandage. Ice elevation encouraged. Follow-up with his own doctor or the provided orthopedic doctor in the course of next week. ([employer]CH APRN) Course & Med Decision Making Staff Physician Addendum: I was working in the ER during the course of this patient's visit. I was available for consultation as needed, but I was not directly involved in the care of this patient. (LOU MCDONOUGH MD) Dragon Disclaimer Dragon Disclaimer This electronic medical record was generated, in whole or in part, using a voice recognition dictation system. ([employer] APRN) Departure Departure Impression: Primary Impression: Traumatic hematoma of left hand Disposition: HOME, SELF-CARE Condition: STABLE Referrals: MAYRCHUY RICHARDSON MD (PCP) Follow-up next week Patient Instructions: Hematoma, [id number] Additional Instructions: You were evaluated in the emergency for left hand swelling and bruising. Try to keep the left hand wrapped with Colby bandage, try to ice and elevate it. Follow- up with your doctor in the course of next week. Problem Qualifiers Primary Impression: Traumatic hematoma of left hand Encounter type: initial encounter Qualified Codes: S60.222A - Contusion of left hand, initial encounter [employer] APRN Jun 17, 2019 20:58 LOU MCDONOUGH MD Jun 19, 2019 18:25
[2019-06-17 21:11] VITALS: BP 152/83
== END 2019-06-17 21:15 | disposition home or self-care (01) ==
LOC: ER 19:15
DX: S60.222A Contusion of left hand, initial encounter (principal); I48.91 Unspecified atrial fibrillation; J44.9 Chronic obstructive pulmonary disease, unspecified; I11.9 Hypertensive heart disease without heart failure; X58.XXXA Exposure to other specified factors, initial encounter; Y93.89 Activity, other specified; Y92.89 Other specified places as the place of occurrence of the external cause; Y99.8 Other external cause status
CPT/HCPCS: 73130; 99284